=== PATIENT | female | born 1970 | race Caucasian/White ===

== ENCOUNTER 2017-11-02 22:07 | Emergency (ER) | payer BC ==
[~2017-11-02] VITALS: Ht 157.5 cm; Wt 140.7 kg
[~2017-11-02 22:07] MED LIST: NO HOME MEDS
[2017-11-02 23:10] LABS: BASOPHILS # (AUTO) 0.2 X10'3 (0-0.2); BASOPHILS % (AUTO) 1.3 % (0-1); EOSINOPHILS # (AUTO) 0.1 X10'3 (0-0.9); EOSINOPHILS % (AUTO) 0.6 % (0-6); HEMATOCRIT 41.5 % (35.0-45.0); HEMOGLOBIN 13.9 g/dl (12.0-16.0); LYMPHOCYTES # (AUTO) 2.1 X10'3 (1.1-4.8); LYMPHOCYTES % (AUTO) 14.1 % (21-51); MEAN CORPUSCULAR HEMOGLOBIN 29.5 PG (27.0-31.0); MEAN CORPUSCULAR HGB CONC 33.4 % (33.0-36.5); MEAN CORPUSCULAR VOLUME 88.3 FL (78-98); MEAN PLATELET VOLUME 8.6 FL (7.4-10.4); MONOCYTES # (AUTO) 0.6 X10'3 (0-0.9); NEUTROPHILS # (AUTO) 12.1 X10'3 (1.8-7.7); PLATELET COUNT 378 X10'3 (140-440); RED CELL DISTRIBUTION WIDTH 14.7 % (11.5-14.5); WHITE BLOOD COUNT 15.2 X10'3 (4.5-11.0)
[2017-11-02 23:20] LABS: ALANINE AMINOTRANSFERASE 28 U/L (12-78); ALBUMIN 3.6 G/DL (3.4-5.0); ALBUMIN/GLOBULIN RATIO 0.8 (1.1-1.5); ALKALINE PHOSPHATASE 117 IU/L (46-116); ANION GAP 9 (8-16); ASPARTATE AMINO TRANSFERASE 17 U/L (10-37); BILIRUBIN,TOTAL 0.4 MG/DL (0.1-1.0); BLOOD UREA NITROGEN 17 MG/DL (7-18); CALCIUM 9.3 MG/DL (8.5-10.1); CHLORIDE 100 MMOL/L (99-107); CREATININE 0.85 MG/DL (0.40-0.90); GLUCOSE 158 MG/DL (70-104); POTASSIUM 3.9 MMOL/L (3.5-5.1); SODIUM 136 MMOL/L (135-145); TOTAL PROTEIN 7.9 G/DL (6.4-8.2); eGFR 71 ML/MIN
[2017-11-02 23:27] LABS: D-DIMER 0.41 MG/L FEU (0-0.50); PARTIAL THROMBOPLASTIN TIME 29 SECONDS (22-32); PROTHROMBIN TIME 10.3 SECONDS (9.0-12.0)
[2017-11-03] MEDS ORDERED: LEVO750T21 PO (02:07)
[2017-11-03 02:20] VITALS: BP 158/94
== END 2017-11-03 02:21 | disposition home or self-care (01) ==
LOC: ER 22:08
DX: J06.9 Acute upper respiratory infection, unspecified (principal); M54.9 Dorsalgia, unspecified; I10 Essential (primary) hypertension; G89.29 Other chronic pain; F17.210 Nicotine dependence, cigarettes, uncomplicated; Z86.718 Personal history of other venous thrombosis and embolism; Z98.890 Other specified postprocedural states; Z88.1 Allergy status to other antibiotic agents; Z88.6 Allergy status to analgesic agent; Z88.0 Allergy status to penicillin; Z88.2 Allergy status to sulfonamides; Z88.5 Allergy status to narcotic agent; Z88.8 Allergy status to other drugs, medicaments and biological substances
CPT/HCPCS: 36415; 71045; 71250; 80053; 83880; 84484; 85025; 85379; 85610; 85730; 93005; 99285

== ENCOUNTER 2019-11-21 00:28 | Inpatient (IN) | payer BC ==
[~2019-11-21] VITALS: Ht 157.5 cm; Wt 136.4 kg
[2019-11-21] MEDS ORDERED: ipratropium/albuterol 3ml nebule NEB ONE (01:30)
[2019-11-21] MEDS ORDERED: methylPREDNISolone sod succ 125mg/2ml vial IV ONE (01:30)
[2019-11-21 01:40] LABS: BASOPHILS # (AUTO) 0.1 X10'3 (0-0.2); BASOPHILS % (AUTO) 0.9 % (0-1); EOSINOPHILS # (AUTO) 0.2 X10'3 (0-0.9); EOSINOPHILS % (AUTO) 1.6 % (0-6); HEMATOCRIT 42.2 % (35.0-45.0); HEMOGLOBIN 14.2 g/dl (12.0-16.0); LYMPHOCYTES % (AUTO) 15.2 % (21-51); MEAN CORPUSCULAR HEMOGLOBIN 30.9 PG (27.0-31.0); MEAN CORPUSCULAR HGB CONC 33.6 g/dL (33.0-36.5); MEAN PLATELET VOLUME 8.4 FL (7.4-10.4); MONOCYTES # (AUTO) 0.8 X10'3 (0-0.9); MONOCYTES % (AUTO) 6.1 % (2-12); NEUTROPHILS # (AUTO) 10.2 X10'3 (1.8-7.7); NEUTROPHILS % (AUTO) 76.2 % (42-75); PLATELET COUNT 325 X10'3 (140-440); RED BLOOD COUNT 4.59 X10'6 (4.20-5.60); RED CELL DISTRIBUTION WIDTH 13.3 % (11.5-14.5); WHITE BLOOD COUNT 13.4 X10'3 (4.5-11.0)
[2019-11-21 01:51] LABS: ALANINE AMINOTRANSFERASE 34 U/L (12-78); ALBUMIN 3.5 G/DL (3.4-5.0); ALBUMIN/GLOBULIN RATIO 0.8 (1.1-1.5); ALKALINE PHOSPHATASE 128 IU/L (46-116); ANION GAP 8 (8-16); ASPARTATE AMINO TRANSFERASE 21 U/L (10-37); BILIRUBIN,TOTAL 0.3 MG/DL (0.1-1.0); BLOOD UREA NITROGEN 20 MG/DL (7-18); CALCIUM 8.6 MG/DL (8.5-10.1); CHLORIDE 103 MMOL/L (99-107); CREATININE 1.11 MG/DL (0.40-0.90); GLUCOSE 187 MG/DL (70-104); POTASSIUM 4.4 MMOL/L (3.5-5.1); SODIUM 139 MMOL/L (135-145); TOTAL CARBON DIOXIDE 27.8 MMOL/L (24-32); eGFR 52 ML/MIN
[2019-11-21 01:58] LABS: TROPONIN I < 0.04 NG/ML (0.0-0.05)
--- NOTE | 2019-11-21 03:35 | NUR ---
pt in bed in no apparent distress. updated on tests being run. becoming agitated with delay in care, reassured tests are being run and wanting to ensure safe DC if stable enough to go home.
[2019-11-21] MEDS ORDERED: HYDR200T80 PO (04:06)
[2019-11-21] MEDS ORDERED: ALBU2.5V13 NEB (04:24)
[2019-11-21] MEDS ORDERED: HCTZ25T PO (04:24)
[2019-11-21] MEDS ORDERED: LEVO175T2 PO (04:24)
[2019-11-21] MEDS ORDERED: LIRA0.6P2 SUBCUT (04:24)
[2019-11-21] MEDS ORDERED: CHOL50004 PO (04:24)
[2019-11-21] MEDS ORDERED: LORA10TA65 PO (04:24)
[2019-11-21] MEDS ORDERED: FURO40TA4 PO (04:24)
[2019-11-21] MEDS ORDERED: HYDR-4353 PO (04:24)
[2019-11-21] MEDS ORDERED: APIX5TAB3 PO (04:24)
[2019-11-21] MEDS ORDERED: ALBU18HF2 INH (04:24)
[2019-11-21] MEDS ORDERED: BUPR300T53 PO (04:24)
[2019-11-21] MEDS ORDERED: LISI10TA4 PO (04:24)
[2019-11-21] MEDS ORDERED: ERGO500014 PO (04:24)
[2019-11-21] MEDS ORDERED: ATEN100T PO (04:24)
[2019-11-21] MEDS ORDERED: PANT20TA2 PO (04:24)
[2019-11-21] MEDS ORDERED: CYCL-394 PO (04:24)
[2019-11-21] MEDS ORDERED: FLUT100D2 INH (04:24)
[2019-11-21] MEDS ORDERED: potassium CL 10mEq/100ml bag 100 ML IV PRN ×2 (04:30)
[2019-11-21] MEDS ORDERED: ondansetron/PF 4mg/2ml inj IV PRN (04:30)
[2019-11-21] MEDS ORDERED: potassium Cl 20 mEq SR tablet PO PRN ×2 (04:30)
[2019-11-21] MEDS ORDERED: acetaminophen 325mg tablet PO PRN (04:30)
[2019-11-21] MEDS ORDERED: magnesium 2GM in 50ml NS 50 ML IV PRN (04:30)
[2019-11-21] MEDS ORDERED: magnesium Cl slow-release 64mg tablet PO PRN (04:30)
[2019-11-21] MEDS ORDERED: mag hydrox/Alum hydrox/simeth 30ml oral suspension PO PRN (04:30)
[2019-11-21] MEDS ORDERED: magnesium 4gm in 100ml NS 100 ML IV PRN (04:30)
[2019-11-21] MEDS ORDERED: magnesium hydroxide 30ml (MOM) UD suspension PO PRN (04:30)
--- NOTE | 2019-11-21 05:09 | NUR ---
Received report from primary care nurse Luis PALAFOX. Pending patient arrival to the floor.
[2019-11-21 05:30] VITALS: BP 149/81
[2019-11-21 06:08] LABS: HEMOGLOBIN A1C 7.1 % (4.5-6.2)
[2019-11-21] MEDS ORDERED: HYDROcodone/acetaminophen 10/325mg tab PO PRN (08:00)
[2019-11-21] MEDS: K and/or MAG REPLACEMENT MC SCH ×2 (08:00→18:58)
[2019-11-21] MEDS: albuterol 2.5 MG/3 ML nebule NEB PRN ×2 (08:28→20:27)
[2019-11-21] MEDS: lisinopril 10 MG tablet PO SCH (10:32)
[2019-11-21] MEDS: furosemide 40mg tablet PO SCH (10:32)
[2019-11-21] MEDS: atenolol 50mg tablet PO SCH (10:32)
[2019-11-21] MEDS: levoTHYROXINE 100mcg tablet PO SCH (10:33)
[2019-11-21] MEDS: pantoprazole 40mg Tablet.DR PO SCH (10:33)
[2019-11-21] MEDS: loratadine 10mg tablet PO SCH (10:34)
[2019-11-21] MEDS: apixaban 5mg tablet PO SCH (10:34)
[2019-11-21] MEDS: F IV SCH ×2 (10:35→20:19)
[2019-11-21] MEDS: normal saline 1000ml 1,000 ML IV SCH (10:53)
[2019-11-21 11:00] VITALS: BP 142/79
[2019-11-21] MEDS: hydroxychloroquine 200mg tablet PO SCH (11:09)
[2019-11-21] MEDS ORDERED: dextrose 50%-water 50ml dispensing syringe IV PRN ×2 (12:05)
[2019-11-21] MEDS ORDERED: MESSAGE TO PHARMACY PO ONE (12:05)
[2019-11-21] MEDS ORDERED: glucagon, human recombinant 1mg kit SUBCUT PRN (12:05)
[2019-11-21] MEDS ORDERED: dextrose ORAL solution 15 GM/59 ML bottle PO PRN ×2 (12:05)
[2019-11-21] MEDS: HYDROcodone/acetaminophen 10/325mg tab PO PRN ×2 (12:25→19:25)
--- NOTE | 2019-11-21 12:27 | NUR ---
Patient allergy lists corticosterioids. Patient states she was given dose in Er and also this am she was given dose and has tolerated well. Patient reports when "they put something in my wrist for carpal tunnel they just told me to stay away from corticosteriods." Dr Nieto and pharmacsist Bella notified. Ok to continue solumedrol.
[2019-11-21] MEDS: insulin Lispro (HumaLOG) vial - multi-dose SQ SCH ×2 (13:38→19:14)
--- NOTE | 2019-11-21 14:25 | NUR ---
DM consult: Pt with A1c 7.1%, written DM education with RD contact information placed in patient's chart. Will remain available.
--- NOTE | 2019-11-21 17:36 | NUR ---
Student documentation: I have reviewed and agree with all interventions, assessments performed and documented by VIVIENNE Miranda. Student Medication Administration: For this medication-pass time frame, all medication were reviewed, dispensed, administered and documented per hospital policy by VIVIENNE miranda.
[2019-11-21 18:00] VITALS: BP 135/65
--- NOTE | 2019-11-21 18:25 | NUR ---
Patient in room [facility]. I have received report from Ponce PALAFOX and had the opportunity to ask questions and assume patient care.
--- NOTE | 2019-11-21 18:27 | NUR ---
Problems reprioritized. Patient report given, questions answered & plan of care reviewed with Wanda PALAFOX.
--- NOTE | 2019-11-21 18:32 | NUR ---
Problems reprioritized. Patient report given, questions answered & plan of care reviewed with VIVIENNE Muñoz.
[2019-11-21] MEDS: oseltamivir phos 75mg capsule PO SCH (20:18)
[2019-11-21] MEDS: insulin glargine (Lantus) pen - multi-dose SQ SCH (23:04)
[2019-11-22] VITALS: BP 147/76
[2019-11-22] MEDS: albuterol 2.5 MG/3 ML nebule NEB PRN ×2 (02:21→17:47)
[2019-11-22 05:43] LABS: BASOPHILS # (AUTO) 0.1 X10'3 (0-0.2); BASOPHILS % (AUTO) 0.5 % (0-1); EOSINOPHILS % (AUTO) 0 % (0-6); HEMATOCRIT 42.3 % (35.0-45.0); HEMOGLOBIN 13.8 g/dl (12.0-16.0); LYMPHOCYTES # (AUTO) 1.6 X10'3 (1.1-4.8); LYMPHOCYTES % (AUTO) 11.1 % (21-51); MEAN CORPUSCULAR HEMOGLOBIN 29.8 PG (27.0-31.0); MEAN CORPUSCULAR HGB CONC 32.5 g/dL (33.0-36.5); MEAN CORPUSCULAR VOLUME 91.6 FL (78-98); MEAN PLATELET VOLUME 8.6 FL (7.4-10.4); MONOCYTES # (AUTO) 0.6 X10'3 (0-0.9); MONOCYTES % (AUTO) 3.8 % (2-12); NEUTROPHILS # (AUTO) 12.4 X10'3 (1.8-7.7); NEUTROPHILS % (AUTO) 84.6 % (42-75); PLATELET COUNT 346 X10'3 (140-440); RED BLOOD COUNT 4.62 X10'6 (4.20-5.60); RED CELL DISTRIBUTION WIDTH 13.4 % (11.5-14.5); WHITE BLOOD COUNT 14.7 X10'3 (4.5-11.0)
[2019-11-22 06:05] LABS: ALANINE AMINOTRANSFERASE 31 U/L (12-78); ALBUMIN 3.4 G/DL (3.4-5.0); ALBUMIN/GLOBULIN RATIO 0.8 (1.1-1.5); ALKALINE PHOSPHATASE 114 IU/L (46-116); ANION GAP 7 (8-16); ASPARTATE AMINO TRANSFERASE 14 U/L (10-37); BILIRUBIN,TOTAL 0.4 MG/DL (0.1-1.0); BLOOD UREA NITROGEN 15 MG/DL (7-18); BUN/CREATININE RATIO 22.7 (6.6-38.0); CALCIUM 9.2 MG/DL (8.5-10.1); CHLORIDE 102 MMOL/L (99-107); CREATININE 0.66 MG/DL (0.40-0.90); GLUCOSE 192 MG/DL (70-104); MAGNESIUM 2.1 MG/DL (1.5-2.4); POTASSIUM 4.2 MMOL/L (3.5-5.1); SODIUM 138 MMOL/L (135-145); TOTAL CARBON DIOXIDE 29.1 MMOL/L (24-32); TOTAL PROTEIN 7.9 G/DL (6.4-8.2); eGFR > 90 ML/MIN
--- NOTE | 2019-11-22 06:33 | NUR ---
Problems reprioritized. Patient report given, questions answered & plan of care reviewed with Nicole PALAFOX.
[2019-11-22 07:35] VITALS: BP 132/79
[2019-11-22] MEDS: F IV SCH ×2 (07:42→20:00)
[2019-11-22] MEDS: hydroxychloroquine 200mg tablet PO SCH (07:46)
[2019-11-22] MEDS: lisinopril 10 MG tablet PO SCH (07:46)
[2019-11-22] MEDS: pantoprazole 40mg Tablet.DR PO SCH (07:46)
[2019-11-22] MEDS: apixaban 5mg tablet PO SCH (07:46)
[2019-11-22] MEDS: furosemide 40mg tablet PO SCH ×2 (07:46→07:52)
[2019-11-22] MEDS: levoTHYROXINE 100mcg tablet PO SCH (07:47)
[2019-11-22] MEDS: atenolol 50mg tablet PO SCH (07:47)
[2019-11-22] MEDS: loratadine 10mg tablet PO SCH (07:47)
[2019-11-22] MEDS: HYDROcodone/acetaminophen 10/325mg tab PO PRN ×2 (07:54→22:40)
[2019-11-22] MEDS: K and/or MAG REPLACEMENT MC SCH ×2 (08:00→20:00)
[2019-11-22] MEDS: insulin Lispro (HumaLOG) vial - multi-dose SQ SCH ×3 (09:05→19:14)
[2019-11-22] MEDS: oseltamivir phos 75mg capsule PO SCH ×2 (09:05→19:15)
[2019-11-22] MEDS: levoFLOXACIN 500mg tablet PO SCH (11:26)
[2019-11-22 11:49] VITALS: BP 146/78
--- NOTE | 2019-11-22 14:15 | NUR ---
PAGER ID: [phone] MESSAGE: Dali Torres 355B: patient c/o red, hot face. thinks its a reaction to medication. new orders? [email or web address] [id number]
--- NOTE | 2019-11-22 14:55 | NUR ---
PAGER ID: [phone] MESSAGE: Dali ShipmanB: her face is still burning and itching. she thinks its a reaction to solumedrol.... can I give her some Benadryl or something? [email or web address] [id number]
[2019-11-22] MEDS ORDERED: diphenhydrAMINE 25mg capsule PO ONE (15:00)
--- NOTE | 2019-11-22 17:34 | NUR ---
Student documentation: I have reviewed all interventions, assessments performed and documented by Yosvany WELLS from [facility].
[2019-11-22 18:00] VITALS: BP 141/82
--- NOTE | 2019-11-22 18:40 | NUR ---
Problems reprioritized. Patient report given, questions answered & plan of care reviewed with VIVIENNE DE OLIVEIRA.
--- NOTE | 2019-11-22 18:40 | NUR ---
I have received report from Nicole PALAFOX and had the opportunity to ask questions and assume patient care.
[2019-11-22] MEDS: lactobacillus rhamnosus 10,000 MMU CELLS/CAPSULE PO SCH (19:16)
[2019-11-22] MEDS: insulin glargine (Lantus) pen - multi-dose SQ SCH (22:21)
[2019-11-22] MEDS: normal saline 1000ml 1,000 ML IV SCH (22:34)
[2019-11-22] MEDS: diphenhydrAMINE 25mg capsule PO PRN (22:37)
[2019-11-23] VITALS: BP 135/74
[2019-11-23 05:16] LABS: BASOPHILS % (AUTO) 0.3 % (0-1); EOSINOPHILS # (AUTO) 0.1 X10'3 (0-0.9); EOSINOPHILS % (AUTO) 0.5 % (0-6); HEMATOCRIT 41.8 % (35.0-45.0); HEMOGLOBIN 13.9 g/dl (12.0-16.0); LYMPHOCYTES # (AUTO) 3.6 X10'3 (1.1-4.8); LYMPHOCYTES % (AUTO) 28.9 % (21-51); MEAN CORPUSCULAR HEMOGLOBIN 30.5 PG (27.0-31.0); MEAN CORPUSCULAR HGB CONC 33.2 g/dL (33.0-36.5); MEAN CORPUSCULAR VOLUME 91.8 FL (78-98); MEAN PLATELET VOLUME 8.3 FL (7.4-10.4); MONOCYTES # (AUTO) 0.8 X10'3 (0-0.9); MONOCYTES % (AUTO) 6.7 % (2-12); NEUTROPHILS # (AUTO) 7.9 X10'3 (1.8-7.7); NEUTROPHILS % (AUTO) 63.6 % (42-75); PLATELET COUNT 330 X10'3 (140-440); RED BLOOD COUNT 4.55 X10'6 (4.20-5.60); RED CELL DISTRIBUTION WIDTH 13.4 % (11.5-14.5); WHITE BLOOD COUNT 12.4 X10'3 (4.5-11.0)
[2019-11-23 05:37] LABS: ALANINE AMINOTRANSFERASE 38 U/L (12-78); ALBUMIN 3.1 G/DL (3.4-5.0); ALBUMIN/GLOBULIN RATIO 0.8 (1.1-1.5); ALKALINE PHOSPHATASE 100 IU/L (46-116); ANION GAP 6 (8-16); ASPARTATE AMINO TRANSFERASE 25 U/L (10-37); BILIRUBIN,TOTAL 0.3 MG/DL (0.1-1.0); BLOOD UREA NITROGEN 26 MG/DL (7-18); CALCIUM 8.9 MG/DL (8.5-10.1); CHLORIDE 104 MMOL/L (99-107); CREATININE 0.93 MG/DL (0.40-0.90); GLUCOSE 149 MG/DL (70-104); POTASSIUM 4.2 MMOL/L (3.5-5.1); SODIUM 142 MMOL/L (135-145); TOTAL CARBON DIOXIDE 32.5 MMOL/L (24-32); TOTAL PROTEIN 7.2 G/DL (6.4-8.2); eGFR 64 ML/MIN
--- NOTE | 2019-11-23 06:05 | NUR ---
Problems reprioritized. Patient report given, questions answered & plan of care reviewed with Stuart PALAFOX.
--- NOTE | 2019-11-23 06:42 | NUR ---
Patient in room [facility]. I have received report from VIVIENNE MCCURDY and had the opportunity to ask questions and assume patient care.
--- NOTE | 2019-11-23 06:54 | NUR ---
Patient in room [facility]. I have received report from Gabrielle PALAFOX and had the opportunity to ask questions and assume patient care.
[2019-11-23] MEDS: levoTHYROXINE 100mcg tablet PO SCH (07:13)
[2019-11-23] MEDS: apixaban 5mg tablet PO SCH (07:13)
[2019-11-23] MEDS: loratadine 10mg tablet PO SCH (07:13)
[2019-11-23] MEDS: oseltamivir phos 75mg capsule PO SCH ×2 (07:15→19:59)
[2019-11-23] MEDS: lactobacillus rhamnosus 10,000 MMU CELLS/CAPSULE PO SCH ×2 (07:15→19:59)
[2019-11-23] MEDS: atenolol 50mg tablet PO SCH (07:15)
[2019-11-23] MEDS: lisinopril 10 MG tablet PO SCH (07:15)
[2019-11-23] MEDS: pantoprazole 40mg Tablet.DR PO SCH (07:17)
[2019-11-23] MEDS: HYDROcodone/acetaminophen 10/325mg tab PO PRN ×2 (07:17→17:12)
[2019-11-23] MEDS: diphenhydrAMINE 25mg capsule PO PRN (07:17)
[2019-11-23] MEDS: furosemide 40mg tablet PO SCH (08:00)
[2019-11-23] MEDS: K and/or MAG REPLACEMENT MC SCH ×2 (08:00→20:00)
[2019-11-23 08:15] VITALS: BP 158/78
[2019-11-23] MEDS: hydroxychloroquine 200mg tablet PO SCH (09:11)
[2019-11-23] MEDS: insulin Lispro (HumaLOG) vial - multi-dose SQ SCH ×3 (09:26→19:24)
[2019-11-23] MEDS: levoFLOXACIN 500mg tablet PO SCH (10:53)
[2019-11-23 12:25] VITALS: BP 151/80
--- NOTE | 2019-11-23 12:34 | NUR ---
Per patient Dr. Nieto and she had discussed resuming Solumedrol with Benadryl. Clarified with Dr Nieto and Dr Nieto did ok to resume patient's Solumedrol with Benadryl.
[2019-11-23] MEDS ORDERED: F IV ONE (12:45)
[2019-11-23] MEDS: diphenhydrAMINE 25mg capsule PO SCH ×2 (13:02→19:59)
--- NOTE | 2019-11-23 15:09 | NUR ---
Student documentation: I have reviewed and agree with all interventions, assessments performed and documented by SN Criselda. Student Medication Administration: For this medication-pass time frame, all medication were reviewed, dispensed, administered and documented per hospital policy by Sn Criselda.
--- NOTE | 2019-11-23 15:36 | NUR ---
Problems reprioritized. Patient report given, questions answered & plan of care reviewed with VIVIENNE Carrion.
--- NOTE | 2019-11-23 15:37 | NUR ---
Patient in room [facility]. I have received report from VIVIENNE Cooley and [facility] student nurse Criselda, and had the opportunity to ask questions and assume patient care.
--- NOTE | 2019-11-23 18:25 | NUR ---
Problems reprioritized. Patient report given, questions answered & plan of care reviewed with Joanne Paige RN.
[2019-11-23 18:30] VITALS: BP 135/70
--- NOTE | 2019-11-23 18:33 | NUR ---
Patient in room [facility]. I have received report from VIVIENNE Carrion and had the opportunity to ask questions and assume patient care. Addendum: 11/23/19 at 1833 by Brittney Davis RN Amended: Links added.
[2019-11-23] MEDS: F IV SCH (19:59)
[2019-11-23] MEDS: insulin glargine (Lantus) pen - multi-dose SQ SCH (21:29)
[2019-11-24] VITALS: BP 143/81
[2019-11-24 05:17] LABS: BASOPHILS # (AUTO) 0.1 X10'3 (0-0.2); EOSINOPHILS % (AUTO) 0 % (0-6); HEMATOCRIT 42.4 % (35.0-45.0); HEMOGLOBIN 14.1 g/dl (12.0-16.0); LYMPHOCYTES # (AUTO) 1.8 X10'3 (1.1-4.8); LYMPHOCYTES % (AUTO) 12.9 % (21-51); MEAN CORPUSCULAR HEMOGLOBIN 30.4 PG (27.0-31.0); MEAN CORPUSCULAR HGB CONC 33.1 g/dL (33.0-36.5); MEAN CORPUSCULAR VOLUME 91.7 FL (78-98); MONOCYTES # (AUTO) 0.6 X10'3 (0-0.9); MONOCYTES % (AUTO) 4.3 % (2-12); NEUTROPHILS # (AUTO) 11.7 X10'3 (1.8-7.7); NEUTROPHILS % (AUTO) 81.8 % (42-75); PLATELET COUNT 348 X10'3 (140-440); RED BLOOD COUNT 4.62 X10'6 (4.20-5.60); RED CELL DISTRIBUTION WIDTH 13.4 % (11.5-14.5); WHITE BLOOD COUNT 14.3 X10'3 (4.5-11.0)
[2019-11-24 05:26] LABS: ALANINE AMINOTRANSFERASE 76 U/L (12-78); ALBUMIN 3.2 G/DL (3.4-5.0); ALBUMIN/GLOBULIN RATIO 0.7 (1.1-1.5); ALKALINE PHOSPHATASE 113 IU/L (46-116); ANION GAP 7 (8-16); ASPARTATE AMINO TRANSFERASE 40 U/L (10-37); BILIRUBIN,TOTAL 0.3 MG/DL (0.1-1.0); BLOOD UREA NITROGEN 24 MG/DL (7-18); CALCIUM 8.6 MG/DL (8.5-10.1); CHLORIDE 104 MMOL/L (99-107); CREATININE 0.89 MG/DL (0.40-0.90); GLUCOSE 246 MG/DL (70-104); MAGNESIUM 1.9 MG/DL (1.5-2.4); POTASSIUM 4.2 MMOL/L (3.5-5.1); SODIUM 140 MMOL/L (135-145); TOTAL CARBON DIOXIDE 28.7 MMOL/L (24-32); TOTAL PROTEIN 7.5 G/DL (6.4-8.2); eGFR 67 ML/MIN
--- NOTE | 2019-11-24 06:00 | NUR ---
Patient in room [facility]. I have received report from Joanne PALAFOX and had the opportunity to ask questions and assume patient care.
--- NOTE | 2019-11-24 06:32 | NUR ---
Problems reprioritized. Patient report given, questions answered & plan of care reviewed with VIVIENNE Oleary.
[2019-11-24 08:00] VITALS: BP 140/83
[2019-11-24] MEDS: K and/or MAG REPLACEMENT MC SCH (08:00)
[2019-11-24] MEDS: furosemide 40mg tablet PO SCH (08:00)
[2019-11-24] MEDS: oseltamivir phos 75mg capsule PO SCH (08:13)
[2019-11-24] MEDS: lactobacillus rhamnosus 10,000 MMU CELLS/CAPSULE PO SCH (08:14)
[2019-11-24] MEDS: diphenhydrAMINE 25mg capsule PO SCH (08:14)
[2019-11-24] MEDS: apixaban 5mg tablet PO SCH (08:15)
[2019-11-24] MEDS: pantoprazole 40mg Tablet.DR PO SCH (08:15)
[2019-11-24] MEDS: atenolol 50mg tablet PO SCH (08:15)
[2019-11-24] MEDS: hydroxychloroquine 200mg tablet PO SCH (08:15)
[2019-11-24] MEDS: loratadine 10mg tablet PO SCH (08:15)
[2019-11-24] MEDS: lisinopril 10 MG tablet PO SCH (08:16)
[2019-11-24] MEDS: HYDROcodone/acetaminophen 10/325mg tab PO PRN (08:17)
[2019-11-24] MEDS: F IV SCH (08:17)
[2019-11-24] MEDS: levoTHYROXINE 100mcg tablet PO SCH (08:19)
[2019-11-24] MEDS: insulin Lispro (HumaLOG) vial - multi-dose SQ SCH (08:36)
[2019-11-24 11:55] VITALS: BP 150/90
[2019-11-24] MEDS: levoFLOXACIN 500mg tablet PO SCH (12:01)
[2019-11-24] MEDS ORDERED: LEVO500T89 PO (12:09)
[2019-11-24] MEDS ORDERED: IPRA3AMP9 IH (12:09)
[2019-11-24] MEDS ORDERED: TAM75C PO (12:09)
--- NOTE | 2019-11-24 13:53 | NUR ---
Patient discharged with all belongings. Patient discharge paperwork gone over with pt. Patient had the opportunity to ask questions. Home meds given back to patient. W/C to front lobby. Family to take pt home.
== END 2019-11-24 13:53 | disposition home or self-care (01) | DRG 191 ==
LOC: ER 00:29 → ED HOLD 04:26 → SUR 3N 05:15
PROVIDERS: ADMIT Internal Medicine; ATTEND Internal Medicine
DX: J44.1 Chronic obstructive pulmonary disease with (acute) exacerbation (principal); Z68.43 Body mass index [BMI] 50.0-59.9, adult; J10.1 Influenza due to other identified influenza virus with other respiratory manifestations; M32.9 Systemic lupus erythematosus, unspecified; R09.02 Hypoxemia; E03.9 Hypothyroidism, unspecified; F17.200 Nicotine dependence, unspecified, uncomplicated; G89.29 Other chronic pain; I10 Essential (primary) hypertension; M17.0 Bilateral primary osteoarthritis of knee; Z20.828 Contact with and (suspected) exposure to other viral communicable diseases; Z79.01 Long term (current) use of anticoagulants; Z86.718 Personal history of other venous thrombosis and embolism; Z98.891 History of uterine scar from previous surgery; E66.01 Morbid (severe) obesity due to excess calories
CPT/HCPCS: 36415; 71045; 76937; 80053; 82948; 83036; 83735; 83880; 84443; 84484; 85025; 87081; 87502; 87503; 87635; 93005; 93306; 93308; 94640; 94667; 94760; 96374; 99285; G0378; J1815; J2920; J2930; J7030; Q0163

== ENCOUNTER 2021-03-21 20:34 | Emergency (ER) | payer BC ==
[~2021-03-21] VITALS: Ht 154.9 cm; Wt 132.4 kg
[~2021-03-21 20:34] MED LIST changes: +ALBU18HF2 INH; +APIX5TAB3 PO; +ATEN100T PO; +BUPR300T53 PO; +CHOL50004 PO; +CYCL-394 PO; +FLUT100D2 INH; +FURO40TA4 PO; +HYDR-4353 PO; +HYDR200T80 PO; +IPRA3AMP9 IH; +LEVO175T2 PO; +LEVO500T90 PO; +LIRA0.6P2 SUBCUT; +LISI10TA27 PO; +LORA10TA65 PO; +PANT20TA2 PO; +TAM75C PO; +[UNRECOGNIZED DRUG - CODE] PO
[2021-03-21 22:13] VITALS: BP 166/100
[2021-03-21] MEDS ORDERED: ipratropium/albuterol 3ml nebule NEB ONE (22:45)
[2021-03-22 00:02] LABS: BASOPHILS % (AUTO) 0.3 % (0-1); EOSINOPHILS # (AUTO) 0.2 X10'3 (0-0.9); EOSINOPHILS % (AUTO) 1.7 % (0-6); HEMATOCRIT 40.7 % (35.0-45.0); HEMOGLOBIN 13.8 g/dl (12.0-16.0); LYMPHOCYTES # (AUTO) 3.5 X10'3 (1.1-4.8); LYMPHOCYTES % (AUTO) 35.8 % (21-51); MEAN CORPUSCULAR HEMOGLOBIN 31.1 PG (27.0-31.0); MEAN CORPUSCULAR HGB CONC 33.8 g/dL (33.0-36.5); MEAN PLATELET VOLUME 8.3 FL (7.4-10.4); MONOCYTES # (AUTO) 0.6 X10'3 (0-0.9); MONOCYTES % (AUTO) 6.4 % (2-12); NEUTROPHILS # (AUTO) 5.4 X10'3 (1.8-7.7); NEUTROPHILS % (AUTO) 55.8 % (42-75); PLATELET COUNT 303 X10'3 (140-440); RED BLOOD COUNT 4.43 X10'6 (4.20-5.60); RED CELL DISTRIBUTION WIDTH 13.5 % (11.5-14.5); WHITE BLOOD COUNT 9.7 X10'3 (4.5-11.0)
[2021-03-22 00:15] LABS: ALANINE AMINOTRANSFERASE 22 U/L (12-78); ALBUMIN 3.2 G/DL (3.4-5.0); ALBUMIN/GLOBULIN RATIO 0.8 (1.1-1.5); ALKALINE PHOSPHATASE 99 IU/L (46-116); ANION GAP 9 (8-16); ASPARTATE AMINO TRANSFERASE 12 U/L (10-37); BILIRUBIN,TOTAL 0.2 MG/DL (0.1-1.0); BLOOD UREA NITROGEN 20 MG/DL (7-18); BUN/CREATININE RATIO 25.3 (6.6-38.0); CALCIUM 8.4 MG/DL (8.5-10.1); CHLORIDE 105 MMOL/L (99-107); CREATININE 0.79 MG/DL (0.40-0.90); GLUCOSE 155 MG/DL (70-104); POTASSIUM 4.3 MMOL/L (3.5-5.1); SODIUM 140 MMOL/L (135-145); TOTAL CARBON DIOXIDE 26.4 MMOL/L (24-32); TOTAL PROTEIN 7.4 G/DL (6.4-8.2); eGFR 76 ML/MIN
== END 2021-03-22 03:40 | disposition left against medical advice (07) ==
LOC: ER 20:36
DX: J06.9 Acute upper respiratory infection, unspecified (principal); I10 Essential (primary) hypertension; J44.9 Chronic obstructive pulmonary disease, unspecified; E11.9 Type 2 diabetes mellitus without complications; Z88.0 Allergy status to penicillin; Z88.2 Allergy status to sulfonamides; Z79.899 Other long term (current) drug therapy; Z88.6 Allergy status to analgesic agent; Z88.1 Allergy status to other antibiotic agents
CPT/HCPCS: 36415; 71045; 80053; 83880; 84484; 85025; 93005; 99285

== ENCOUNTER 2021-11-07 13:24 | Emergency (ER) | payer BC ==
[~2021-11-07] VITALS: Ht 154.9 cm; Wt 134.0 kg
[~2021-11-07 13:24] MED LIST changes: +ERGO125013 PO; +LEVO-65 PO; -LEVO500T90 PO; -[UNRECOGNIZED DRUG - CODE] PO
[2021-11-07 14:04] VITALS: BP 177/105
[2021-11-07] MEDS ORDERED: NEO/5DRO7 RIGHT EAR (14:23)
[2021-11-07] MEDS ORDERED: CIPR-259 PO (14:23)
== END 2021-11-07 16:05 | disposition home or self-care (01) ==
LOC: ER 13:24
DX: H60.91 Unspecified otitis externa, right ear (principal); I10 Essential (primary) hypertension; J44.9 Chronic obstructive pulmonary disease, unspecified; E11.9 Type 2 diabetes mellitus without complications; G89.29 Other chronic pain; Z88.6 Allergy status to analgesic agent
CPT/HCPCS: 99283

== ENCOUNTER 2022-10-30 16:51 | Emergency (ER) | payer BC ==
[~2022-10-30] VITALS: Ht 154.9 cm; Wt 139.0 kg
[~2022-10-30 16:51] MED LIST changes: +NEO/5DRO7 RIGHT EAR
[2022-10-30 17:51] VITALS: TEMP 97.3
[2022-10-30 19:20] VITALS: BP 183/102; PULSE 78; RESP 18; O2SAT 95
[2022-10-30] MEDS ORDERED: proparacaine 0.5% ophthalmic drops 15ml EACHEYE ONE (19:40)
== END 2022-10-30 20:17 | disposition home or self-care (01) ==
LOC: ER 16:52
DX: H11.32 Conjunctival hemorrhage, left eye (principal); I11.0 Hypertensive heart disease with heart failure; J44.9 Chronic obstructive pulmonary disease, unspecified; E11.9 Type 2 diabetes mellitus without complications; Z98.890 Other specified postprocedural states; Z88.6 Allergy status to analgesic agent; Z88.2 Allergy status to sulfonamides; Z88.1 Allergy status to other antibiotic agents
CPT/HCPCS: 99281

== ENCOUNTER 2023-02-14 20:19 | Emergency (ER) | payer BC ==
[~2023-02-14] VITALS: Ht 154.9 cm; Wt 136.4 kg
[2023-02-14 22:13] LABS: BASOPHILS # (AUTO) 0.1 X10'3 (0-0.2); BASOPHILS % (AUTO) 0.7 % (0-1); EOSINOPHILS # (AUTO) 0.1 X10'3 (0-0.9); EOSINOPHILS % (AUTO) 1.2 % (0-6); HEMATOCRIT 41.1 % (35.0-45.0); LYMPHOCYTES # (AUTO) 2.6 X10'3 (1.1-4.8); LYMPHOCYTES % (AUTO) 23.1 % (21-51); MEAN CORPUSCULAR HEMOGLOBIN 30.7 PG (27.0-31.0); MEAN CORPUSCULAR HGB CONC 34.1 g/dL (33.0-36.5); MEAN CORPUSCULAR VOLUME 90.2 FL (78-98); MEAN PLATELET VOLUME 7.9 FL (7.4-10.4); MONOCYTES # (AUTO) 0.7 X10'3 (0-0.9); NEUTROPHILS # (AUTO) 7.7 X10'3 (1.8-7.7); PLATELET COUNT 317 X10'3 (140-440); RED BLOOD COUNT 4.56 X10'6 (4.20-5.60); RED CELL DISTRIBUTION WIDTH 13.3 % (11.5-14.5); WHITE BLOOD COUNT 11.2 X10'3 (4.5-11.0)
[2023-02-14 22:27] LABS: ALANINE AMINOTRANSFERASE 35 U/L (12-78); ALBUMIN 3.1 G/DL (3.4-5.0); ALBUMIN/GLOBULIN RATIO 0.7 (1.1-1.5); ALKALINE PHOSPHATASE 108 IU/L (46-116); ANION GAP 5 (8-16); ASPARTATE AMINO TRANSFERASE 24 U/L (10-37); BILIRUBIN,TOTAL 0.4 MG/DL (0.1-1.0); BLOOD UREA NITROGEN 9 MG/DL (7-18); BUN/CREATININE RATIO 13.4 (10.0-20.0); CHLORIDE 100 MMOL/L (99-107); CREATININE 0.67 MG/DL (0.40-0.90); GLUCOSE 142 MG/DL (70-104); POTASSIUM 4.1 MMOL/L (3.5-5.1); SODIUM 137 MMOL/L (135-145); TOTAL CARBON DIOXIDE 32.1 MMOL/L (24-32); TOTAL PROTEIN 7.5 G/DL (6.4-8.2); eCRCL 72 ML/MIN; eGFR > 90 ML/MIN
[2023-02-14 22:35] LABS: PRO BRAIN NATRIURETIC PEPTIDE 239 PG/ML (0-125)
[2023-02-15] MEDS ORDERED: ipratropium/albuterol 3ml nebule NEB ONE (00:15)
[2023-02-15 00:31] VITALS: PULSE 73; RESP 20; O2SAT 94
[2023-02-15 00:39] VITALS: PULSE 78; RESP 18; O2SAT 98
[2023-02-15] MEDS ORDERED: ATR0.5NEB IH (00:51)
[2023-02-15] MEDS ORDERED: ALB0.5UD NEB (00:51)
[2023-02-15 01:22] VITALS: BP 101/47; PULSE 77; RESP 18; TEMP 98; O2SAT 98
== END 2023-02-15 01:24 | disposition home or self-care (01) ==
LOC: ER 20:20
DX: J06.9 Acute upper respiratory infection, unspecified (principal); Z20.822 Contact with and (suspected) exposure to COVID-19; J44.89 Other specified chronic obstructive pulmonary disease; I10 Essential (primary) hypertension; E11.9 Type 2 diabetes mellitus without complications; G89.29 Other chronic pain; Z79.899 Other long term (current) drug therapy; Z79.2 Long term (current) use of antibiotics; Z88.0 Allergy status to penicillin; Z88.1 Allergy status to other antibiotic agents; Z88.2 Allergy status to sulfonamides; Z88.8 Allergy status to other drugs, medicaments and biological substances; Z88.6 Allergy status to analgesic agent
CPT/HCPCS: 36415; 71045; 80053; 83880; 84484; 85025; 87502; 87503; 87811; 93005; 94640; 94760; 99285

== ENCOUNTER 2023-08-27 15:05 | Emergency (ER) | payer BC ==
[~2023-08-27] VITALS: Ht 157.5 cm; Wt 133.2 kg
[~2023-08-27 15:05] MED LIST changes: +ATR0.5NEB IH
[2023-08-27] MEDS: LIDOcaine 1%/PF 5ML 10 MG/ML VIAL SQ ONE (16:38)
[2023-08-27] MEDS: oxyCODONE/APAP 10/325mg tablet PO ONE (16:39)
[2023-08-27] MEDS ORDERED: CEPH-585 PO (17:31)
[2023-08-27 17:44] VITALS: BP 133/74; PULSE 76; RESP 17; TEMP 98.5; O2SAT 92
== END 2023-08-27 17:45 | disposition home or self-care (01) ==
LOC: ER 15:05
DX: K08.89 Other specified disorders of teeth and supporting structures (principal); I10 Essential (primary) hypertension; J44.9 Chronic obstructive pulmonary disease, unspecified; E11.9 Type 2 diabetes mellitus without complications; Z88.8 Allergy status to other drugs, medicaments and biological substances; Z88.6 Allergy status to analgesic agent; Z88.0 Allergy status to penicillin; Z88.2 Allergy status to sulfonamides; Z88.1 Allergy status to other antibiotic agents; Z98.890 Other specified postprocedural states
CPT/HCPCS: 64400; 99284

== ENCOUNTER 2024-06-25 15:53 | Inpatient (IN) | payer BC ==
[~2024-06-25] VITALS: Ht 154.9 cm; Wt 133.8 kg
[~2024-06-25 15:53] MED LIST changes: +CEPH-585 PO
[2024-06-25 16:28] LABS: BASOPHILS % (AUTO) 0.3 % (0-1); EOSINOPHILS # (AUTO) 0.1 X10'3 (0-0.9); EOSINOPHILS % (AUTO) 0.8 % (0-6); HEMATOCRIT 41.8 % (35.0-45.0); HEMOGLOBIN 14.2 g/dl (12.0-16.0); LYMPHOCYTES # (AUTO) 0.9 X10'3 (1.1-4.8); LYMPHOCYTES % (AUTO) 6.9 % (21-51); MEAN CORPUSCULAR HEMOGLOBIN 31.6 PG (27.0-31.0); MEAN CORPUSCULAR HGB CONC 33.9 g/dL (33.0-36.5); MEAN PLATELET VOLUME 7.9 FL (7.4-10.4); MONOCYTES # (AUTO) 0.7 X10'3 (0-0.9); MONOCYTES % (AUTO) 5.1 % (2-12); NEUTROPHILS # (AUTO) 11.2 X10'3 (1.8-7.7); NEUTROPHILS % (AUTO) 86.9 % (42-75); PLATELET COUNT 374 X10'3 (140-440); RED BLOOD COUNT 4.49 X10'6 (4.20-5.60); RED CELL DISTRIBUTION WIDTH 14.8 % (11.5-14.5); WHITE BLOOD COUNT 12.9 X10'3 (4.5-11.0)
[2024-06-25 16:39] LABS: ALANINE AMINOTRANSFERASE 28 U/L (12-78); ALBUMIN 3.5 G/DL (3.4-5.0); ALBUMIN/GLOBULIN RATIO 0.9 (1.1-1.5); ALKALINE PHOSPHATASE 106 IU/L (46-116); ANION GAP 6 (8-16); ASPARTATE AMINO TRANSFERASE 28 U/L (10-37); BILIRUBIN,TOTAL 0.5 MG/DL (0.1-1.0); BLOOD UREA NITROGEN 11 MG/DL (7-18); BUN/CREATININE RATIO 12.9 (10.0-20.0); CALCIUM 8.7 MG/DL (8.5-10.1); CHLORIDE 99 MMOL/L (99-107); CREATININE 0.85 MG/DL (0.40-0.90); GLUCOSE 183 MG/DL (70-104); SODIUM 138 MMOL/L (135-145); TOTAL CARBON DIOXIDE 32.7 MMOL/L (24-32); TOTAL PROTEIN 7.4 G/DL (6.4-8.2); eCRCL 56 ML/MIN; eGFR 69 ML/MIN
[2024-06-25 16:46] LABS: PRO BRAIN NATRIURETIC PEPTIDE 200 PG/ML (0-125)
--- NOTE | 2024-06-25 16:54 | RADIOLOGY REPORT ---
CHEST RADIOGRAPH Indication: CP Technique: Single frontal view of the chest was obtained Comparison: DI CHEST,SINGLE VIEW on DOS: 02/14/23, CHEST,SINGLE VIEW on DOS: 03/21/21, CHEST,SINGLE VIEW on DOS: 11/21/19 FINDINGS: Lines and Tubes: None Lungs: No focal consolidation. Pleura: No effusion. No pneumothorax. Cardiomediastinal contours: Unremarkable Bones: No acute osseous abnormality. There are multiple surgical clips in the neck base in the midline. IMPRESSION: 1. No acute cardiopulmonary disease.
--- NOTE | 2024-06-25 16:54 | ELECTROCARDIOGRAPH REPORT ---
[facility] Test Date: 2024-06-25 Test Time: 16:52:45 Pat Name: ALENA BENTLEY Department: EMERGENCY ROOM Room: [place] [address] Gender: F Back End Developer: YARELI : [id number] Requested By: REE STEVENS Order Number: [id number] Reading MD: Dr. Tank Moser Measurements Intervals [place] Rate: 85 P: 63 CO: 148 QRS: 53 QRSD: 99 T: 65 QT: 378 QTc: 450 Interpretive Statements Sinus rhythm Electronically Signed On 06-27-2024 21:44:[address] Tank Moser Please click the below link to view image of tracing.
--- NOTE | 2024-06-25 20:17 | Physician Documentation ---
History of Present Illness ~ Chief Complaint: Shortness of Breath Stated Complaint: LOW 02 Time Seen by MD: 19:47 Primary Medical Doctor: CHANTAL DEL ROSARIO Mode of Arrival: POV, Ambulatory HPI Patient presents to the emergency room for evaluation of shortness of breath. Patient has history of COPD. She was recently treated with an antibiotic and states that she got better however she has suddenly gotten worse. Endorses congestion as well as coryza. No fevers. She normally has to use oxygen as needed but has had to use it constantly since this started. She does smoke but she stopped two days ago. Medication Reconciliation Allergies: Coded Allergies: nitrofurantoin (Unverified Allergy, Intermediate, Hives, 06/25/24) NSAIDS (Non-Steroidal Anti-Inflamma (Verified Allergy, Unknown, 06/25/24) Penicillins (Verified Allergy, Unknown, 06/25/24) RASH, TONGUE SWELLING Sulfa (Sulfonamide Antibiotics) (Verified Allergy, Unknown, 06/25/24) Tetracyclines (Verified Allergy, Unknown, 06/25/24) aspirin (Verified Allergy, Unknown, 06/25/24) codeine (Verified Allergy, Unknown, 06/25/24) erythromycin base (Verified Allergy, Unknown, 06/25/24) lemon (Unverified Allergy, Unknown, 06/25/24) meperidine (Verified Allergy, Unknown, 06/25/24) morphine (Verified Allergy, Unknown, 06/25/24) prednisone (Verified Allergy, Unknown, 06/25/24) Uncoded Allergies: CORTICOSTEROIDS (Allergy, Unknown, RASH, 11/21/19) IVP DYE (Allergy, Unknown, 11/21/19) METRONIDIZOL (Allergy, Unknown, 11/21/19) Scheduled Albuterol Sulfate (Ventolin Hfa), 2 PUFFS INH Q4HPRN, (Reported) Apixaban (Eliquis), 1 TAB PO DAILY, (Reported) Atenolol (Atenolol), 1 TAB PO DAILY, (Reported) Bupropion HCl (Wellbutrin Xl), 1 TAB PO DAILY, (Reported) Cholecalciferol (Vitamin D3) (Vitamin D3), 4,000 UNIT PO DAILY, (Reported) Cyclobenzaprine HCl (Cyclobenzaprine HCl), 1 TAB PO BID, (Reported) Ergocalciferol (Vitamin D2) (Vitamin D2), 4 CAP PO Q7D, (Reported) Fluticasone Propionate (Flovent 100 Mcg Diskus), 220 MCG INH BID, (Reported) Folic Acid* (Folic Acid*), 1 TAB PO DAILY, (Reported) Furosemide 40 MG (Lasix), 1 TAB PO DAILY, (Reported) Hydrocodone Bit/Acetaminophen ([place] 10-325 Tablet), 1-2 TAB PO Q6H PRN PAIN, (Reported) Hydroxychloroquine Sulfate (Plaquenil), 1 TAB PO DAILY, (Reported) Ipratropium [place] Neb* (Atrovent Neb*), 0.5 MG IH Q8H Ipratropium/Albuterol Sulfate (IPRAT-ALBUT 0.5-3(2.5) MG/3 ML nebule), 3 ML IH QID Levothyroxine* (Synthroid*), 200 MCG PO DAILY, (Reported) Loratadine (Claritin), 1 TAB PO DAILY, (Reported) Metformin Hcl (Metformin Hcl), 1 TAB PO Q12H, (Reported) Pantoprazole Sodium (Protonix), 2 TAB PO DAILY, (Reported) Semaglutide (Ozempic), 2 MG SUBCUT Q7D, (Reported) Miscellaneous Medications Methotrexate Sodium/Pf (Methotrexate 1 gm Vial), (Reported) Discontinued Medications Cephalexin*Monohydrate* (Keflex*), 1 CAP PO QID Discontinued Reason: patient no longer taking Home Med List (No Home Medications), (Reported) Discontinued Reason: patient no longer taking Levofloxacin (Levofloxacin), 500 MG PO DAILY@11 Discontinued Reason: patient no longer taking Liraglutide (Victoza 3-Kain), Unknown Dose SUBCUT DAILY, (Reported) Discontinued Reason: patient no longer taking Lisinopril (Lisinopril), 1 TAB PO DAILY, (Reported) Discontinued Reason: patient no longer taking Constantino/Polymyx B Sulf/Dexameth (Vdjelz-Ltgqk-Yaqbatdz Eye Drop), 1 DROP RIGHT EAR Q6H Discontinued Reason: patient no longer taking Oseltamivir Phosphate (Tamiflu), 75 MG PO BID Discontinued Reason: patient no longer taking Past Medical History Past Medical History: *ENT*, Hypertension, Asthma, COPD, Pneumonia, Diabetes, Thyroid (unspecified), Chronic Pain, Deep Vein Thrombosis Past Surgical History: , other Alcohol Use: None Drug Use: none Lives with: Family Lives In: Home Review of Systems ROS All review of systems negative except as per HPI Physical Exam Vital Signs: Temperature: 97.6, Source: Temporal, Heart Rate: 87, Respiratory Rate: 28, BP: 153/84, Pulse Oximetry: 95, Weight: 133.800 Oxygen Flow Rate: 2 Physical Exam General: Patient is awake, alert, oriented x4 in no acute distress. On nasal cannula Head: Normocephalic and atraumatic. Eyes: Conjunctival normal. EOMI. PERRL. ENT: Mucous membranes moist. Neck: Supple, trachea is midline. Chest: Noted rhonchi bilaterally. There is no accessory muscle use or retractions. Cardiac: RRR without murmurs, gallops, or rubs. Progress Results/Orders Results/Orders Orders - GEO CARTAGENA MD Page Hospitalist (06/25/24 20:39) Fill Out Med Reconciliation (06/25/24 20:39) Svn Treatment (06/25/24 20:39) Completed Orders - GEO CARTAGENA MD Diphenhydramine Inj (Benadryl Inj.) (06/25/24 20:40) Azithromycin/Ns 500mg/250ml (Zithromax/N (06/25/24 20:40) Ceftriaxone/W9a-Pghjcmbd 1gm (Rocephin 1 (06/25/24 20:40) Ipratropium/Albuterol Nebule (Ipratrop/A (06/25/24 20:40) Vital Signs 06/25/24 06/25/24 06/25/24 06/25/24 16:01 17:00 17:30 18:03 Temp 97.6 97.6 Pulse 82 83 Resp 18 24 16 B/P (MAP) 136/79 147/94 (111) Pulse Ox 92 97 94 O2 Delivery Nasal Cannula* O2 Flow Rate 2 2 FiO2 28 28 06/25/24 19:15 Temp 97.6 Pulse 87 Resp 28 B/P (MAP) 153/84 (107) Pulse Ox 95 O2 Flow Rate 2 FiO2 28 Laboratory Tests Test 06/25/24 16:18 06/25/24 17:17 06/25/24 18:20 06/25/24 19:05 White Blood Count 12.9 H Red Blood Count 4.49 Hemoglobin 14.2 Hematocrit 41.8 Mean Corpuscular Volume 93.0 Mean Corpuscular Hemoglobin 31.6 H Mean Corpuscular Hemoglobin Concent 33.9 Red Cell Distribution Width 14.8 H Platelet Count 374 Mean Platelet Volume 7.9 Neutrophils (%) (Auto) 86.9 H Lymphocytes (%) (Auto) 6.9 L Monocytes (%) (Auto) 5.1 Eosinophils (%) (Auto) 0.8 Basophils (%) (Auto) 0.3 Neutrophils # (Auto) 11.2 H Lymphocytes # (Auto) 0.9 L Monocytes # (Auto) 0.7 Eosinophils # (Auto) 0.1 Basophils # (Auto) 0.0 CBC Comment Sodium Level 138 Potassium Level 4.0 Chloride Level 99 Carbon Dioxide Level 32.7 H Anion Gap 6 L Blood Urea Nitrogen 11 Creatinine 0.85 Estimated GFR/1.73 m2 69 BUN/Creatinine Ratio 12.9 Glucose Level 183 H Hemoglobin A1c 7.8 H Calcium Level 8.7 Total Bilirubin 0.5 Aspartate Amino Transf (AST/SGOT) 28 Alanine Aminotransferase (ALT/SGPT) 28 Alkaline Phosphatase 106 Troponin I High Sensitivity 6 6 7 Pro-B-Type Natriuretic Peptide 200 H Total Protein 7.4 Albumin 3.5 Globulin 3.9 Albumin/Globulin Ratio 0.9 L Chemistry Comments Urine Specimen Description Cln catch midstream Urine Color Yellow Urine Clarity Clear Urine pH 6.5 Urine Specific [place] 1.010 Urine Protein Negative Urine Glucose (UA) Negative Urine Ketones Negative Urine Occult Blood Negative Urine Nitrite Negative Urine Bilirubin Negative Urine Urobilinogen 1.0 Urine Leukocyte Esterase Negative Urine Culture Indicated Not ind Volume Urine Centrifuged 10 ml Urine Comment Troponin I High Sens Percent Delta 0 16 Troponin I Hi Sens Absolute Change 0 1 Medical Decision Making Findings Patient presented to the emergency room with chief complaint of shortness of breath differentials include but are not limited to CHF exacerbation, pneumonia, COPD, viral syndrome therefore emergent labs and imaging indicated. Patient has already been on antibiotics and continues to worsen and she is considered high risk and he had not feel she would do well on outpatient basis. Departure Disposition: HOME / SELF CARE Impression: Primary Impression: Respiratory failure Additional Impression: Pneumonia Condition: Guarded Referrals: NO PRIMARY CARE PROVIDER (PCP) Signature Scribe Signature: No scribe Attestation: The note accurately reflects work and decisions made by me.Geo Cartagena MD 06/26/24 05:32 GEO CARTAGENA MD June 25, 2024 20:17
[2024-06-25] MEDS ORDERED: magnesium sulf-water 2g/50mL 50 ML IV PRN (21:10)
[2024-06-25] MEDS ORDERED: potassium Cl 20 mEq SR tablet PO PRN ×2 (21:10)
[2024-06-25] MEDS ORDERED: magnesium sulf-water 4G/100mL 100 ML IV PRN (21:10)
[2024-06-25] MEDS ORDERED: magnesium hydroxide 30ml (MOM) UD suspension PO PRN (21:10)
[2024-06-25] MEDS ORDERED: magnesium Cl slow-release 64mg tablet PO PRN (21:10)
[2024-06-25] MEDS ORDERED: ondansetron/PF 4mg/2ml inj IV PRN (21:10)
[2024-06-25] MEDS ORDERED: potassium Cl 40MEQ/1/2NS 520ml 520 ML IV PRN (21:10)
[2024-06-25] MEDS ORDERED: ipratropium/albuterol 3ml nebule NEB PRN (21:10)
[2024-06-25] MEDS ORDERED: acetaminophen 325mg tablet PO PRN (21:10)
[2024-06-25] MEDS ORDERED: mag hydrox/Alum hydrox/simeth 30ml oral suspension PO PRN (21:10)
[2024-06-25 21:30] LABS: BILIRUBIN,URINE NEGATIVE (Neg); CLARITY,URINE CLEAR (Clear); COLOR,URINE YELLOW (Yellow); GLUCOSE, URINE NEGATIVE (Neg); KETONES,URINE NEGATIVE (Neg); LEUKOCYTE ESTERASE ,URINE NEGATIVE (Neg); NITRITES, URINE NEGATIVE (Neg); OCCULT BLOOD,URINE NEGATIVE (Neg); PH,URINE 6.5 (4.8-8.0); PROTEIN,URINE NEGATIVE (Neg)
[2024-06-25] MEDS: diphenhydrAMINE 50 mg/ml inj IV ONE ×2 (21:30→23:37)
[2024-06-25] MEDS: CefTRIAXone/D5W-Rocephin 1gm 50 ML IV ONE (21:30)
[2024-06-25] MEDS: azithromycin/NS 500mg/250ml 250 ML IV ONE (21:30)
[2024-06-25 21:34] LABS: UA COLLECTION TYPE CLN CATCH MIDSTREAM
[2024-06-25 21:40] LABS: HEMOGLOBIN A1C 7.8 % (4.5-6.2)
[2024-06-25] MEDS: ipratropium/albuterol 3ml nebule NEB ONE (21:41)
[2024-06-25 21:42] VITALS: PULSE 84; RESP 18; O2SAT 96
--- NOTE | 2024-06-25 21:48 | HISTORY AND PHYSICAL-Residence ---
History & Physical Providers to CC Resident Creating Document: PETRA CHAMPION, RES ~ History of Present Illness Primary Medical Doctor: [facility] Reason for Admit\Complaint: COPD exacerbation, pneumonia History of Present Illness The patient is a 54-year-old female with past medical history of COPD, hypothyroidism, diabetes mellitus, hypertension, CHF, rheumatoid arthritis, lupus, presented to the ED with complaints of worsening cough, shortness of breaths and increased oxygen requirements since last two days. The patient has been having difficulty breathing, congestion since the past three weeks but they have worsened yesterday. The cough is productive with greenish yellow sputum and she reports having epigastric abdominal pain and muscle aches because of the cough. Also vomited because of the cough. She also reported subjective fevers of 101 F yesterday. She has congestion and her nose is stuffed up. No sneezing. She usually uses 1 to 1-1/2 L of oxygen at home but has been requiring 2-2 and half L since the last couple of days. Also reported that she can not lie flat on the bed. Uses multiple pillows and sleeps on her side. The patient reported that she had eye discharge towards ending of May for which she was admitted her PCP. She was also having breathing problems at that time. She used cefdinir pills and antibiotic eyedrops for seven days. She felt a little better after the antibiotic course but did not completely resolve. Patient denies diarrhea, constipation, burning micturition. Reports occasional palpitations 1-2 times per week. Allergies: Coded Allergies: nitrofurantoin (Unverified Allergy, Intermediate, Hives, 06/25/24) NSAIDS (Non-Steroidal Anti-Inflamma (Verified Allergy, Unknown, 06/25/24) Penicillins (Verified Allergy, Unknown, 06/25/24) RASH, TONGUE SWELLING Sulfa (Sulfonamide Antibiotics) (Verified Allergy, Unknown, 06/25/24) Tetracyclines (Verified Allergy, Unknown, 06/25/24) aspirin (Verified Allergy, Unknown, 06/25/24) codeine (Verified Allergy, Unknown, 06/25/24) erythromycin base (Verified Allergy, Unknown, 06/25/24) lemon (Unverified Allergy, Unknown, 06/25/24) meperidine (Verified Allergy, Unknown, 06/25/24) morphine (Verified Allergy, Unknown, 06/25/24) prednisone (Verified Allergy, Unknown, 06/25/24) Uncoded Allergies: CORTICOSTEROIDS (Allergy, Unknown, RASH, 11/21/19) IVP DYE (Allergy, Unknown, 11/21/19) METRONIDIZOL (Allergy, Unknown, 11/21/19) Home Medications Home Medications Active Keflex* (Cephalexin HCl) 500 Mg Capsule 1 Cap PO QID Atrovent Neb* (Ipratropium [place]) 0.2 Mg/Ml (0.02 %) Solution 0.5 Mg IH Q8H 10 Days Upsedz-Gpolk-Fjghmqle Eye Drop (Constantino/Polymyx B Sulf/Dexameth) 5 Ml Drops.susp 1 Drop RIGHT EAR Q6H 5 Days IPRAT-ALBUT 0.5-3(2.5) MG/3 ML nebule (Ipratropium/Albuterol Sulfate) 3 Ml Ampul.neb 3 Ml IH QID 10 Days Tamiflu (Oseltamivir Phosphate) 75 Mg Capsule 75 Mg PO BID 3 Days Levofloxacin 500 Mg Tablet 500 Mg PO DAILY@11 5 Days Reported Lasix (Furosemide) 40 Mg Tablet 1 Tab PO DAILY Protonix (Pantoprazole Sodium) 20 Mg Tablet.dr 2 Tab PO DAILY 30 Days Eliquis (Apixaban) 5 Mg Tablet 1 Tab PO DAILY 30 Days Victoza 3-Kain (Liraglutide) 0.6 Mg/0.1 Ml Pen.injctr Unknown Dose SUBCUT DAILY Claritin (Loratadine) 10 Mg Tablet 1 Tab PO DAILY 30 Days Ventolin Hfa (Albuterol Sulfate) 18 Gm Hfa.aer.ad 2 Puffs INH Q4HPRN Flovent 100 Mcg Diskus (Fluticasone Propionate) 1 Puff Disk.w.dev 220 Mcg INH BID Cyclobenzaprine HCl 10 Mg Tablet 1 Tab PO BID 10 Days [place] 10-325 Tablet (Acetaminophen/Hydrocodone Bitart) 1 Each Tablet 1-2 Tab PO Q6H PRN PAIN TAKE 1 TO 2 TABLETS EVERY 6 HOURS NEEDED FOR PAIN. Synthroid* (Levothyroxine Sodium) 175 Mcg Tab 200 Mcg PO DAILY 30 Days Wellbutrin Xl (Bupropion HCl) 300 Mg Tab.er.24h 1 Tab PO DAILY 30 Days Atenolol 100 Mg Tablet 1 Tab PO DAILY 30 Days Lisinopril 10 Mg Tablet 1 Tab PO DAILY 30 Days Vitamin D3 (Cholecalciferol (Vitamin D3)) 125 Mcg Capsule 4,000 Unit PO DAILY 30 Days Vitamin D2 (Ergocalciferol (Vitamin D2)) 1,250 Mcg Capsule 4 Cap PO Q7D 28 Days Plaquenil (Hydroxychloroquine Sulfate) 200 Mg Tablet 1 Tab PO DAILY 30 Days No Home Medications (Home Med List) Each Past Medical History Past Medical History COPD Hypertension DM Lupus RA Thyroiditis s/p thyroidectomy CHF Chronic pain History of DVT in 1987 Past Surgical History Surgical History Comment Thyroidectomy Multiple knee surgeries Past Social History Social History Comment Patient lives in her house with family. Ambulates independently without assistance. The patient goes to [facility] for primary care. 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 Chronic smoker, smoking since age 10. Smokes about half pack of cigarettes per day. Denies alcohol and recreational drug abuse. Alcohol Use: None Drug Use: None Lives with: Family Lives In: Home ROS ROS Reviewed in full. Negative except for pertinent positives in HPI. Exam Vitals: Vital Signs Date Time Temp Pulse Resp B/P (MAP) Pulse Ox O2 Delivery O2 Flow Rate FiO2 06/25/24 19:15 97.6 87 28 153/84 (107) 95 2 28 06/25/24 17:30 Nasal Cannula* General: Adult female, alert and oriented x4, appears to be in mild distress because of shortness of breath Head: Normocephalic with an atraumatic Eyes: Pupils- 3mm, reacting to light, conjunctiva- anicteric Nose and throat: No polyps, septum- normal, no mucosal ulcers Neck: Supple, no lymphadenopathy, no carotid bruit Respiratory: Bilateral rhonchi, diminished breath sounds in the right lung em Cardiac: S1-S2 heard, rhythm regular, no gallop/murmur Abdomen: non distended, mild epigastric tenderness present, no organomegaly, bowel sounds - heard Extremities: no clubbing, no pedal edema, no deformities, peripheral pulses - 2+ Skin: warm and dry, no rash, no purpura Neuro: No focal deficit, gross cranial nerve exam - normal Diagnostic Data Last Recorded Lab Results: 06/25/24 1618 06/25/24 1618 Diagnostic Data: Laboratory Tests Test 06/25/24 21:28 Coagulation Comments Advance Care Planning Advanced Care plannin - 30 Minutes (Advanced care planning discussed with the patient and she does not want chest compressions but is okay with short-term intubation) Additional Plan A 54-year-old female with past medical history of COPD presented to the ED with complaints of worsening shortness of breath since last three weeks. She is being admitted into the hospital for further evaluation and management. Plan: Acute on chronic hypoxemic respiratory failure Acute COPD exacerbation Community-acquired pneumonia Patient uses 1 to 1-1/2 L O2 at home. Requiring 3 L now. Started her on ipratropium/albuterol q.4h scheduled and q.2h p.r.n. Patient allergic to multiple antibiotics and steroids. Starting the patient on IV levofloxacin. One dose of 125 mg Solu-Medrol along with 25 mg Benadryl ordered. Continue 40 mg Solu-Medrol twice daily along with 25 mg Benadryl twice daily. Incentive spirometry and flutter valve q.1h while awake. Follow up with blood cultures and sputum culture reports. Mild leukocytosis 12.9 with neutrophilia, normal lactic acid and procalcitonin, afebrile. COVID negative. Diabetes mellitus HB A1c 7.8. Starting the patient on hyperglycemia/hypoglycemia protocol. Started the patient on 25 units b.i.d. Lantus and 10 units Humalog with meals along with medium dose supplemental insulin protocol. Hypertension Continue home atenolol 100 mg daily. Hypothyroidism Continue home Synthroid 200 mcg daily. History of DVT The patient takes eliquis 5 mg once daily. Continued. Chronic bilateral leg swelling Continue home Lasix 40 mg daily. Rheumatoid arthritis Lupus Continue outpatient management. Code Status: No chest compressions, okay for short-term intubation DVT Prophylaxis: Eliquis Analgesia/Sedation: [place] 10 Lines/Tubes: PIV GI Prophylaxis: Protonix Nutrition: Heart healthy diet PT: Ordered Disposition: We will admit the patient into [facility]. Continue treatment for COPD and pneumonia. Administer Benadryl along with Solu-Medrol. Petra Champion MD Internal Medicine Resident PGY-1 Addendum I personally reviewed the chart, labs and imaging and reviewed the patient with the team. I agree with the assessment and plan as documented by the resident. Patient was seen through remote audio-visual assessment through HIPAA compliance setup. Date of Service: June 25, 2024 Billing Provider: GEO ABDALLA MD, SOWMYA MANJARI, RES June 25, 2024 21:48 GEO ABDALLA MD June 26, 2024 01:05
[2024-06-25 21:49] LABS: PROTHROMBIN TIME 10.6 SECONDS (9.0-12.0)
[2024-06-25 21:50] VITALS: PULSE 89
[2024-06-25] MEDS ORDERED: SEMA2PEN SUBCUT (22:05)
[2024-06-25] MEDS ORDERED: METH1VIA2 (22:05)
[2024-06-25] MEDS ORDERED: METF-436 PO (22:06)
[2024-06-25] MEDS ORDERED: FOLI0.4T6 PO (22:06)
[2024-06-25] MEDS ORDERED: apixaban 5mg tablet PO SCH (22:10)
[2024-06-25] MEDS ORDERED: DEXTROSE 15 GM of carb/4 tabs (each vial/BOTTLE has 4 tablets) PO PRN ×2 (22:25)
[2024-06-25] MEDS ORDERED: dextrose 50%-water 50ml dispensing syringe IV PRN ×2 (22:25)
[2024-06-25] MEDS ORDERED: glucagon, human recombinant 1mg kit SUBCUT PRN (22:25)
[2024-06-25 22:44] VITALS: BP 140/62; PULSE 85; RESP 12; TEMP 97.9; O2SAT 92
[2024-06-25 22:50] VITALS: RESP 12; O2SAT 92
[2024-06-25] MEDS: methylPREDNISolone sod succ 125mg/2ml vial IV ONE (23:36)
[2024-06-25] MEDS: insulin glargine (Lantus) pen - multi-dose SQ ONE (23:40)
[2024-06-25] MEDS: ipratropium/albuterol 3ml nebule NEB SCH (23:45)
[2024-06-25 23:47] VITALS: PULSE 87; RESP 20; O2SAT 93
[2024-06-25] MEDS: insulin glargine (Lantus) pen - multi-dose SQ SCH (23:51)
[2024-06-25 23:55] VITALS: PULSE 87; RESP 18
[2024-06-26] VITALS (18 sets, daily range): BP systolic 108–149; BP diastolic 60–86; PULSE 6–88; RESP 15–20; TEMP 96.9–97.9; O2SAT 87–96
[2024-06-26] MEDS: HYDROcodone/acetaminophen 10/325mg tab PO ONE (02:19)
[2024-06-26 06:18] LABS: BASOPHILS % (AUTO) 0.1 % (0-1); EOSINOPHILS % (AUTO) 0.1 % (0-6); HEMATOCRIT 42.2 % (35.0-45.0); LYMPHOCYTES # (AUTO) 0.7 X10'3 (1.1-4.8); LYMPHOCYTES % (AUTO) 5.7 % (21-51); MEAN CORPUSCULAR HEMOGLOBIN 31.1 PG (27.0-31.0); MEAN CORPUSCULAR HGB CONC 33.2 g/dL (33.0-36.5); MEAN CORPUSCULAR VOLUME 93.8 FL (78-98); MEAN PLATELET VOLUME 8.5 FL (7.4-10.4); MONOCYTES # (AUTO) 0.2 X10'3 (0-0.9); MONOCYTES % (AUTO) 1.6 % (2-12); NEUTROPHILS # (AUTO) 11.1 X10'3 (1.8-7.7); NEUTROPHILS % (AUTO) 92.5 % (42-75); PLATELET COUNT 348 X10'3 (140-440)
[2024-06-26 06:26] LABS: ALANINE AMINOTRANSFERASE 25 U/L (12-78); ALBUMIN 3.4 G/DL (3.4-5.0); ALBUMIN/GLOBULIN RATIO 0.8 (1.1-1.5); ALKALINE PHOSPHATASE 104 IU/L (46-116); ANION GAP 5 (8-16); ASPARTATE AMINO TRANSFERASE 19 U/L (10-37); BILIRUBIN,TOTAL 0.4 MG/DL (0.1-1.0); BLOOD UREA NITROGEN 9 MG/DL (7-18); BUN/CREATININE RATIO 10.6 (10.0-20.0); CALCIUM 8.7 MG/DL (8.5-10.1); CHLORIDE 100 MMOL/L (99-107); CHOLESTEROL 213 MG/DL (0-200); CREATININE 0.85 MG/DL (0.40-0.90); GLUCOSE 221 MG/DL (70-104); HDL CHOLESTEROL 43 MG/DL (35-60); LDL CHOLESTEROL 145 MG/DL (50-100); MAGNESIUM 1.8 MG/DL (1.5-2.4); POTASSIUM 4.2 MMOL/L (3.5-5.1); SODIUM 139 MMOL/L (135-145); TOTAL PROTEIN 7.7 G/DL (6.4-8.2); TRIGLYCERIDES 100 MG/DL (20-135); eCRCL 56 ML/MIN; eGFR 69 ML/MIN
[2024-06-26] MEDS: budesonide 0.5mg/2ml UD nebule IH SCH (07:24)
[2024-06-26] MEDS: nicotine 21mg patch - 24 hr TD SCH (08:00)
[2024-06-26] MEDS: K and/or MAG REPLACEMENT MC SCH (08:00)
[2024-06-26] MEDS: docusate sod 100mg capsule PO SCH (08:00)
[2024-06-26] MEDS ORDERED: HYDR200T73 PO (08:17)
[2024-06-26] MEDS: levoFLOXACIN-Levaquin 500mg/D5 100 ML IV SCH (08:26)
[2024-06-26] MEDS: methylPREDNISolone sod succ 125mg/2ml vial IV SCH (08:26)
[2024-06-26] MEDS: diphenhydrAMINE 50 mg/ml inj IV SCH (08:27)
[2024-06-26] MEDS: HYDROcodone/acetaminophen 10/325mg tab PO SCH (08:31)
[2024-06-26] MEDS: folic acid 0.4mg tablet PO SCH (08:31)
[2024-06-26] MEDS: apixaban 5mg tablet PO SCH ×2 (08:31→20:05)
[2024-06-26] MEDS: BUPROPION HCL 150MG XL 24 HR 150 MG TAB PO SCH (08:31)
[2024-06-26] MEDS: levoTHYROXINE 100mcg tablet PO SCH (08:32)
[2024-06-26] MEDS: furosemide 40mg tablet PO SCH (08:32)
[2024-06-26] MEDS: loratadine 10mg tablet PO SCH (08:33)
[2024-06-26] MEDS: pantoprazole 40mg Tablet.DR PO SCH (08:33)
[2024-06-26] MEDS: atenolol 50mg tablet PO SCH (08:33)
[2024-06-26] MEDS: INSULIN LISPRO 100 UNIT/ML INSULN.PEN MULTI-DOSE SQ SCH ×3 (08:36→18:00)
[2024-06-26] MEDS ORDERED: METF-1203 PO (08:47)
[2024-06-26] MEDS ORDERED: albuterol 2.5 MG/3 ML nebule NEB PRN (10:35)
[2024-06-26] MEDS: ipratropium/albuterol 3ml nebule NEB SCH (11:28)
[2024-06-26] MEDS ORDERED: HYDROcodone/acetaminophen 10/325mg tab PO PRN (13:20)
--- NOTE | 2024-06-26 13:41 | PROGRESS NOTE- Residence ---
Progress Note - Resident Providers to CC Resident Creating Document: NADIA HOLLINGSWORTH RES ~ Central Line/PICC still needed: No Hernandez-Non Protocol Hernandez Indications Met/Not Met: F/C Indications Not Met Antibiotic Timeout Antibiotic Ordered?: Yes Subjective Patient still continued to have coarse raspy cough. Short of breath and difficulty completing sentences and full. Tried to contact her welder in [place], Dr. Lake, awaiting further repsonse back. Objective Vital Signs Date Time Temp Pulse Resp B/P (MAP) Pulse Ox O2 Delivery O2 Flow Rate FiO2 06/26/24 11:36 74 18 Nasal Cannula 3.0 06/26/24 11:28 90 32 06/26/24 10:57 96.9 120/67 (84) Result Diagram: 06/26/2452006/26/24 05 General: Awake and Alert, short of breath. Diffuse tenderness present across the joints and beyond Resp: Mildly tachypneic. Diffuse coarse breath sounds on both inspiration and expiration and raspy cough+ Heart: Regular Rate and rhythm, normal S1 and S2 without murmur, rub or gallop. Abdomen: Obese, Soft and non tender no organomegaly Extremities: Synovitis, joint tenderness present. No cyanosis,clubbing or edema. Skin: Warm and Dry. Malar rash+ Coagulation Studies Laboratory Tests Test 06/25/24 21:28 Prothrombin Time 10.6 SECONDS (9.0-12.0) INR International Normalized Ratio 1.0 INR Coagulation Comments Counseling Services Smoking & Tobacco Cessation: 3-10 Minutes Assessment Assessment 54-year-old female patient with a past medical history of COPD requiring 2 L of oxygen throughout the day, hypothyroidism, diabetes mellitus, hypertension, RA and lupus presents to the hospital with complaints of worsening raspy cough, shortness of breath and increasing fatigue. Pain in the chest and the epigastric region with a deep breath as well as with coughing. She is unable to walk half the distance of what she used to be able to over the last 3 weeks since she fell sick. Reports worsening of the malar rash on her face. Denies any frothy urine or hematuria. Reports that this has happened to her before, and her welder testing that she is in a lupus flare but she is unable to take steroids q.2h allergies. She is unable to use any of the higher immunosuppressants including Rituxan or cyclophosphamide or mycophenolate mofetil and has never used them before either. It appears as the patient was recently sick three weeks ago due to a URTI and since then has been having these ongoing symptoms. Ozempic started 4 months ago, Liraglutide to four years ago but these symptoms started since January. Plan Plan 1. Acute on chronic hypoxemic respiratory failure: Differentials include: progressive ILD/community-acquired pneumonia induced/COPD exacerbation Wells score: 4.5 [place]. [place] [address]. ProBNP very mildly elevated at 200, nonsignificant Requiring 3-4 L oxygen nasal cannula On duo nebs q.4 scheduled and albuterol q.2h p.r.n.. RT eval and treat. Incentive spirometry and flutter valve. 40 mg Solu-Medrol b.i.d.; Benadryl held due to increased drowsiness. If patient develops an allergic reaction, kindly administer Benadryl immediately Awaiting echocardiogram. Follow CTA chest CRP mildly elevated at 5, ESR normal at 16 Continue tapering off of the oxygen to maintain saturation greater than 90% 2. 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 dosing Contacted her welder- reports that the patient has no systemic lupus and has only discoid lupus and to continue her methotrexate. She has never required steroids before. Also her ESR CRP are within normal limits, due to this, the patient will be managed for her acute COPD exacerbation. 3. Morbid obesity Sleep apnea Needs outpatient evaluation by sleep study On Ozempic outside at 0.25, recommend increasing 0.75 4. Type 2 diabetes mellitus: HGB A1c 7.8 Lantus 25 units, Humalog 5 units and medium was supplemental insulin protocol 5. Rheumatoid arthritis: Systemic lupus erythematosus Fibromyalgia Continue methotrexate and Plaquenil Pain management with Dulzura 10 q.6 p.r.n. as per her home medication, prescribed by pain management clinic and [facility] pharmacy for Cures report 6. Hypothyroidism: Continue home medication of Synthroid 200 mcg 7. Hypertension: Home medication of atenolol 100 mg 8. Nicotine use disorder: Declined the nicotine patch 9. Prior history of DVT: Noncompliance Multiple DVTs in the past, lifelong anticoagulation with Eliquis 5 mg b.i.d. Noncompliance with Eliquis- takes only 5 mg daily Follow CTA chest for PE Lines: PIV Code status: Limited Diet: Carb controlled GI prophylaxis: Protonix DVT prophylaxis: Fausto Hollingsworth PGY2, Internal medicine resident Date of Service: June 26, 2024 Billing Provider: LEXI KELLY MD Common Visit Codes: [id number] INP/OBS CARE(HIGH) NADIA HOLLINGSWORTH, RES June 26, 2024 13:41 LEXI KELLY MD June 26, 2024 17:07
[2024-06-26] MEDS: HYDROcodone/acetaminophen 5mg/325mg tablet PO ONE (13:42)
[2024-06-26] MEDS ORDERED: APIX5TAB3 PO (14:28)
[2024-06-26] MEDS ORDERED: iohexol 350MG/ML 100ml bottle IV ONE (17:23)
[2024-06-26] MEDS ORDERED: diphenhydrAMINE 50 mg/ml inj IM ONE (17:25)
[2024-06-26] MEDS: diphenhydrAMINE 50 mg/ml inj IV ONE ×2 (17:39→20:32)
--- NOTE | 2024-06-26 18:29 | RADIOLOGY REPORT ---
PROCEDURE: CT CTA CHEST PE W/ IV CONTRAST 06/26/2024 05:52 PM INDICATION: SOB, ACUTE ONSET, PREMEDICATED W. BENEDRYL COMPARISON: None TECHNIQUE: Coverage: Thorax IV contrast: Administered Phases: Arterial Multiplanar 3-D Maximum Intensity Projection images (MIP) reconstructions were created by the technol jhonatan in the coronal and sagittal planes as part of the CT angiography protocol. Adverse events: None Medication laboratory values were reviewed to verify the patient meets criteria for contrast administ ration. All CT scans at this medical facility are performed using dose modulation techniques as appropriate t o a performed exam including the following: Automated exposure control was utilized; adjustment of th e MA and/or KV according to patient size; and use of iterative reconstruction technique. Radiation dose: CTDIvol 48 mGy, DLP 9099.3 mGy*cm. FINDINGS: Cardiovascular: No evidence of acute or chronic pulmonary emboli identified. Aorta is normal in calib er. The heart is normal in size. Lungs: No lobar consolidation. Mild right basilar subsegmental atelectasis due to elevated right campbell diaphragm. Atherosclerotic calcification of the aortic arch noted. No pleural effusion. No pneumothor ax. The airways are patent. Thyroid: Surgically absent. Esophagus: Unremarkable. Lymphatics: No hilar or mediastinal lymphadenopathy. Bones/soft tissues: No acute abnormality. Upper abdomen: No acute abnormality. Bilateral adrenal gland hyperplasia, left greater than right. H epatomegaly and hepatic steatosis. Gallbladder surgically absent. Mild splenomegaly. Other: None. IMPRESSION: 1. No evidence of acute pulmonary emboli, aortic aneurysm or dissection.
[2024-06-26] MEDS ORDERED: azithromycin/NS 500mg/250ml 250 ML IV SCH (21:00)
[2024-06-27] VITALS (8 sets, daily range): BP systolic 139–152; BP diastolic 82–89; PULSE 80–90; RESP 15–20; TEMP 97–97.2; O2SAT 92–99
[2024-06-27] MEDS: HYDROcodone/acetaminophen 10/325mg tab PO PRN (05:59)
[2024-06-27 06:58] LABS: BASOPHILS % (AUTO) 0.2 % (0-1); EOSINOPHILS % (AUTO) 0 % (0-6); HEMATOCRIT 42.2 % (35.0-45.0); HEMOGLOBIN 13.8 g/dl (12.0-16.0); LYMPHOCYTES # (AUTO) 1.2 X10'3 (1.1-4.8); LYMPHOCYTES % (AUTO) 12.2 % (21-51); MEAN CORPUSCULAR HEMOGLOBIN 31.1 PG (27.0-31.0); MEAN CORPUSCULAR HGB CONC 32.7 g/dL (33.0-36.5); MEAN CORPUSCULAR VOLUME 95.1 FL (78-98); MEAN PLATELET VOLUME 8.5 FL (7.4-10.4); MONOCYTES # (AUTO) 0.6 X10'3 (0-0.9); MONOCYTES % (AUTO) 6.1 % (2-12); NEUTROPHILS % (AUTO) 81.5 % (42-75); PLATELET COUNT 348 X10'3 (140-440); RED BLOOD COUNT 4.43 X10'6 (4.20-5.60); RED CELL DISTRIBUTION WIDTH 15.4 % (11.5-14.5); WHITE BLOOD COUNT 9.9 X10'3 (4.5-11.0)
[2024-06-27 07:33] LABS: ALANINE AMINOTRANSFERASE 22 U/L (12-78); ALBUMIN 3.1 G/DL (3.4-5.0); ALBUMIN/GLOBULIN RATIO 0.7 (1.1-1.5); ALKALINE PHOSPHATASE 93 IU/L (46-116); ANION GAP 9 (8-16); ASPARTATE AMINO TRANSFERASE 25 U/L (10-37); BILIRUBIN,TOTAL 0.2 MG/DL (0.1-1.0); BLOOD UREA NITROGEN 16 MG/DL (7-18); BUN/CREATININE RATIO 17.6 (10.0-20.0); CALCIUM 8.8 MG/DL (8.5-10.1); CHLORIDE 101 MMOL/L (99-107); CREATININE 0.91 MG/DL (0.40-0.90); GLUCOSE 241 MG/DL (70-104); POTASSIUM 4.5 MMOL/L (3.5-5.1); SODIUM 139 MMOL/L (135-145); TOTAL CARBON DIOXIDE 29.2 MMOL/L (24-32); TOTAL PROTEIN 7.3 G/DL (6.4-8.2); eCRCL 52 ML/MIN; eGFR 64 ML/MIN
[2024-06-27] MEDS: diphenhydrAMINE 50 mg/ml inj IV SCH (09:56)
[2024-06-27] MEDS ORDERED: guaiFENesin ER 600mg tablet PO ONE (10:30)
[2024-06-27] MEDS ORDERED: LEVO750T68 PO (10:41)
[2024-06-27] MEDS ORDERED: nystatin 500,000 unit/5ML UD oral suspension PO SCH (13:00)
--- NOTE | 2024-06-27 17:58 | DISCHARGE SUMMARY-Residence ---
Discharge Summary Providers to CC Resident Creating Document: NADIA KEY RES ~ Discharge Summary Admission Diagnosis: PNEUMONIA Hospital Course DATE OF ADMISSION: 06/25/24 DATE OF DISCHARGE: 06/27/24 Discharge Diagnosis\Comment: Acute exacerbation of COPD, acute on chronic hypoxemic respiratory failure secondary to the above Acute CHF exacerbation ruled out Morbid obesity, sleep apnea Discoid lupus, RA, fibromyalgia. Systemic lupus erythematosus ruled out Type 2 DM Nicotine use disorder Prior history of DVT- noncompliant with medications Operations\Procedures: None Consultants: None Complications: None Condition on DC: Stable for transfer New Medications: Levofloxacin (Levofloxacin) 750 Mg Tablet 750 MG PO DAILY for 5 Days, #5 TAB Continued Medications: Albuterol Sulfate (Ventolin Hfa) 18 Gm Hfa.aer.ad 2 PUFFS INH Q4HPRN, #1 INHALER Apixaban (Eliquis) 5 Mg Tablet 1 TAB PO BID for 30 Days, #60 TAB Atenolol (Atenolol) 100 Mg Tablet 1 TAB PO DAILY for 30 Days, #30 TAB Bupropion HCl (Wellbutrin Xl) 300 Mg Tab.er.24h 1 TAB PO DAILY for 30 Days, #30 TAB Cholecalciferol (Vitamin D3) (Vitamin D3) 125 Mcg Capsule 4000 UNIT PO DAILY for 30 Days, #30 CAP 0 Refills Cyclobenzaprine HCl (Cyclobenzaprine HCl) 10 Mg Tablet 1 TAB PO BID for muscle spasms for 10 Days, #30 TAB Fluticasone Propionate (Flovent 100 Mcg Diskus) 1 Puff Disk.w.dev 220 MCG INH BID, #1 INHALER Folic Acid* (Folic Acid*) 0.4 Mg Tablet 1 TAB PO DAILY for 30 Days, #30 TAB Furosemide 40 MG (Lasix) 40 Mg Tablet 1 TAB PO DAILY, TAB Hydrocodone Bit/Acetaminophen ([place] 10-325 Tablet) 1 Each Tablet 1-2 TAB PO Q6H PRN PAIN, #20 TAB TAKE 1 TO 2 TABLETS EVERY 6 HOURS NEEDED FOR PAIN. Hydroxychloroquine Sulfate* (Plaquenil*) 200 Mg Tablet 3 TAB PO DAILY Ipratropium [place] Neb* (Atrovent Neb*) 0.2 Mg/Ml (0.02 %) Solution 0.5 MG IH Q8H for 10 Days, #30 ML Ipratropium/Albuterol Sulfate (IPRAT-ALBUT 0.5-3(2.5) MG/3 ML nebule) 3 Ml Ampul.neb 3 ML IH QID for 10 Days, #40 ML Levothyroxine* (Synthroid*) 175 Mcg Tab 200 MCG PO DAILY for 30 Days, #30 TAB Loratadine (Claritin) 10 Mg Tablet 1 TAB PO DAILY for allergy symptoms for 30 Days, #30 TAB 0 Refills Metformin HCl (Metformin HCl) 500 Mg Tablet 1 TAB PO BID Methotrexate Sodium/Pf (Methotrexate 1 gm Vial) 1 Gram Vial Pantoprazole Sodium (Protonix) 20 Mg Tablet.dr 2 TAB PO DAILY for 30 Days, #30 TAB Semaglutide (Ozempic) 2 Mg/0.75 Ml (8 Mg/3 Ml) Pen.injctr 2 MG SUBCUT Q7D for 30 Days, #3 ML 0 Refills Discharge Summary: 54-year-old female patient with a past medical history of COPD requiring 2 L of oxygen throughout the day, hypothyroidism, diabetes mellitus, hypertension, RA and discoid lupus presents to the hospital complaints of worsening respiratory distress and raspy cough that had begun about three weeks ago. This is a 2nd hospitalization over the last one year with similar complaints. He was previously diagnosed with acute on chronic COPD exacerbation on her 1st hospitalization and was advised to follow up with a briefcase sewer, however, she has not been able to follow up. In the current hospitalization, she was diagnosed and managed for an acute exacerbation of COPD again. She required up to 4 L of oxygen throughout the day. Duo nebs, IV Solu-Medrol with Benadryl due to her allergy to steroids, albuterol p.r.n. and Mucinex scheduled were given. She is allergic to Zithromax due to which she was treated with Levaquin. On the 1st day, she also had coarse inspiratory and expiratory breath sounds at resembled a pleural friction rub. Initially, she reported to have lupus and also presented with a diffuse macular rash. Her sealing machine operator was contacted who confirmed that the patient had only discoid lupus for which she is being managed with Plaquenil and methotrexate due to which an acute lupus flare was ruled out. Reassuring labs were also obtained were ESR was normal and CRP was mildly elevated at 5. Patient had a prior history of recurrent right lower limb DVT, she was supposed to be taking 5 mg of Eliquis twice daily but only takes once a day. Wells score was calculated and was 4.5, due to the noncompliance as well as elevated Wells score, a CTA chest was obtained. CTA chest ruled out pulmonary embolism. Patient continues to smoke. She was extensively counseled regarding the need to quit smoking as well as obtaining a briefcase sewer to review on her resistant COPD. On the day of discharge, the patient was back down to her baseline of 2 L of oxygen and breath sounds are also improved. Due to maintaining stability, the patient was discharged back home. Advised at discharge: Kindly follow up with your PCP in 1 week. Repeat your cbc, cmp, esr and crp in 1-2 weeks. We are prescibing you on an antibiotic that you must take for the next 5 days. Continue using your nebulizations as instructed. You need to use atleast 1-2 lts of Oxygen through out the day. It is very important that you obtain a referral to the briefcase sewer to come up with a treatment plan for you lung disease. As discussed, you need to be appropriate inhalers for the level of distress and hospitalisations. IF you have recurrnece of symptoms, receurrent fevers, chills, or symptoms that fail to improve, kindly return back to the ER. Physical exam at discharge: General: Awake and Alert. Tender points+ Resp: Mildly tachypneic. Interval improvement in diffuse coarse breath sounds. Heart: Regular Rate and rhythm, normal S1 and S2 without murmur, rub or gallop. Abdomen: Obese, Soft and non tender no organomegaly Extremities: No cyanosis,clubbing or edema. Skin: Warm and Dry. Malar rash+ Labs at discharge: WBC 9.9, RBC 4.4, hemoglobin 13.8, platelet 348 Sodium 139, potassium 4.5, chloride 101, bicarb 29.2, BUN 16, creatinine 0.9, glucose 187 CRP 5.78, ESR 16 Medications at discharge: Levaquin 750 mg for five days, albuterol, Eliquis, atenolol, bupropion, cholecalciferol, cyclobenzaprine, Flovent, folic acid, Lasix, hydrocodone 10 q.6 p.r.n., Plaquenil, methotrexate, levothyroxine, Claritin, metformin, Atrovent nebule *Problems/Diagnosis: (1) Chronic obstructive pulmonary disease Status: Acute (2) Respiratory failure Status: Acute Total Time Spent on D/C: > 30 Minutes Counseling Services Smoking & Tobacco Cessation: 3-10 Minutes Date of Service: June 27, 2024 Billing Provider: LEXI KELLY MD, DEEPANJALI, RES June 27, 2024 17:57
[2024-06-27] MEDS ORDERED: guaiFENesin ER 600mg tablet PO SCH (20:00)
--- NOTE | 2024-06-27 20:16 | CARDIOLOGY REPORT ---
APPROVED REPORT EXAM: Comprehensive 2D, Doppler, and color-flow Echocardiogram. Patient Location: 302 Heart Rate: 78 bpm Rhythm: NSR Indications CONGESTIVE HEART FAILURE ELEVATED PRO BNP 200 COPD DIABETES MELLITUS HTN THEATER EDUCATION TEACHER: None. PRIOR ECHOCARDIOGRAM: None. 2D Dimensions RVDd 2.9 cm IVSd 1.2 (0.7-1.1cm) LVDd 5.3 cm PWd 1.2 (0.7-1.1cm) IVSs 1.3 (0.8-1.2cm) LVDs 3.9 (2.5-4.0cm) PWs 1.5 (0.8-1.2cm) LVOT Diameter 2.04 (1.8-2.4cm) LVEF(%) 55.0 (>50%) FS (%) 25.9 % SV 68.3 ml CO 5.0 L/min M-Mode Dimensions Left Atrium(MM) 4.12 (2.5-4.0cm) Aortic Root 3.34 (2.2-3.7cm) Aortic Cusp Exc 2.35 (1.5-2.0cm) Aortic Valve AoV Peak Richard. 129.9 cm/s AoV VTI 25.3 cm AO Peak GR. 6.8 mmHg AO Mean GR. 4 mmHg LVOT VTI 20.26 cm LVOT Peak Richard. 100.0 cm/s NBA(VTI)/BSA 2.62 cm2/m2 NBA (VTI) 2.62 cm2 Mitral Valve MV E Velocity 80.4 cm/s MV Peak Gr. 3 mmHg MV DECEL TIME 268 ms MV A Velocity 81.4 cm/s MV PHT 52 ms E/A Ratio 1.0 MVA (PHT) 4.23 cm2 MV VMax79.8 cm/s Tricuspid Valve TR P. Velocity 156 cm/s RAP ESTIMATE 5 mmHg TR Peak Gr. 10 mmHg RVSP 15 mmHg LEFT VENTRICLE Normal LV size and function. Mild concentric hypertrophy. Overall LVEF is about 60-65% RIGHT VENTRICLE RV ismildly dilated with normal function. RVSP 15 mmHg. ATRIA Left atrium is mildly dilated. Right atrium is mildly dilated. AORTIC VALVE Trileaflet AV appears mildly sclerotic without stenosis. Trace insufficiency. MITRAL VALVE Mild mitral annular calcification with normal valve. Mild mitral regurgitation TRICUSPID VALVE TV appears structurally normal with trace regurgitation. PULMONIC VALVE Pulmonic valve leaflets are thickened. GREAT VESSELS The aortic root is normal in size. IVC is not well visualized. PERICARDIUM Normal pericardium. No effusion. Other Information Study Quality: Fair Technically limited study due to body habitus and COPD. Conclusion Overall LVEF is about 60-65% Normal LV size and function. Mild concentric hypertrophy. RV ismildly dilated with normal function. RVSP 15 mmHg. Trileaflet AV appears mildly sclerotic without stenosis. Trace insufficiency. Mild mitral annular calcification with normal valve. Mild mitral regurgitation TV appears structurally normal with trace regurgitation. Normal pericardium. No effusion.
== END 2024-06-27 11:37 | disposition home or self-care (01) | DRG 189 ==
LOC: ER 15:53 → ED HOLD 21:18 → EDBEDREQ 21:56 → PCU 3S 22:41
PROVIDERS: ADMIT Internal Medicine Sleep Medicine; ATTEND Internal Medicine
PROC: B32T1ZZ Computerized Tomography (CT Scan) of Left Pulmonary Artery using Low Osmolar Contrast (ICD-10-PCS; principal; 2024-06-26)
PROC: B3201ZZ Computerized Tomography (CT Scan) of Thoracic Aorta using Low Osmolar Contrast (ICD-10-PCS; 2024-06-26)
PROC: B32S1ZZ Computerized Tomography (CT Scan) of Right Pulmonary Artery using Low Osmolar Contrast (ICD-10-PCS; 2024-06-26)
DX: J96.21 Acute and chronic respiratory failure with hypoxia (principal); J18.9 Pneumonia, unspecified organism; J44.1 Chronic obstructive pulmonary disease with (acute) exacerbation; J44.0 Chronic obstructive pulmonary disease with (acute) lower respiratory infection; Z68.43 Body mass index [BMI] 50.0-59.9, adult; E11.9 Type 2 diabetes mellitus without complications; E66.01 Morbid (severe) obesity due to excess calories; Z20.822 Contact with and (suspected) exposure to COVID-19; I10 Essential (primary) hypertension; M06.9 Rheumatoid arthritis, unspecified; E03.9 Hypothyroidism, unspecified; M79.7 Fibromyalgia; Z86.718 Personal history of other venous thrombosis and embolism; Z91.148 Patient's other noncompliance with medication regimen for other reason; Z88.8 Allergy status to other drugs, medicaments and biological substances; Z88.6 Allergy status to analgesic agent; Z88.1 Allergy status to other antibiotic agents; Z88.5 Allergy status to narcotic agent; Z88.0 Allergy status to penicillin; Z88.2 Allergy status to sulfonamides; Z98.891 History of uterine scar from previous surgery
CPT/HCPCS: 36415; 71045; 71275; 80053; 80061; 81003; 82948; 83036; 83605; 83735; 83880; 84145; 84443; 84484; 85025; 85610; 85651; 86140; 87040; 87081; 87811; 93005; 93306; 94640; 94760; 96365; 96375; 97161; 97530; 99285; A4615; G0378; J0696; J1200; J1815; J1956; J2919; Q9967

== ENCOUNTER 2025-01-29 14:09 | Emergency (ER) | payer BC ==
[~2025-01-29] VITALS: Ht 157.5 cm; Wt 135.3 kg
[~2025-01-29 14:09] MED LIST changes: -CEPH-585 PO; -ERGO125013 PO; +FOLI0.4T6 PO; +HYDR200T73 PO; -HYDR200T80 PO; -LEVO-65 PO; -LIRA0.6P2 SUBCUT; -LISI10TA27 PO; +METF-1203 PO; +METH1VIA2; -NEO/5DRO7 RIGHT EAR; -NO HOME MEDS; +SEMA2PEN SUBCUT; -TAM75C PO
--- NOTE | 2025-01-29 14:14 | ELECTROCARDIOGRAPH REPORT ---
[facility] Test Date: 2025-01-29 Test Time: 14:12:21 Pat Name: ALENA BENTLEY Department: [facility] Patient ID: [facility]-[id number] Room: Gender: F Candy Butcher: : 1970 Requested By: MARILY OWENS Order Number: [id number] Reading MD: Dr. Tank Moser Measurements Intervals Jarratt Rate: 81 P: 63 MD: 162 QRS: 40 QRSD: 94 T: 60 QT: 388 QTc: 451 Interpretive Statements Sinus rhythm Electronically Signed On 01-30-2025 21:13:[address] Tank Moser Please click the below link to view image of tracing.
--- NOTE | 2025-01-29 14:34 | RADIOLOGY REPORT ---
CHEST RADIOGRAPH INDICATION: CP TECHNIQUE: Single frontal view of the chest was obtained COMPARISON: DI CHEST,SINGLE VIEW on DOS: 06/25/24, DI CHEST,SINGLE VIEW on DOS: 02/14/23, CHEST,SINGLE VIEW on DOS: 03/21/21, CHEST,SINGLE VIEW on DOS: 11/21/19 FINDINGS: Lines and Tubes: None Lungs: Clear Pleura: No effusion. No pneumothorax. Cardiomediastinal contours: Mild vascular calcification of the aortic knob. Sutures clips from previous probable thyroid surgery. Bones: Unremarkable IMPRESSION: 1. No radiographic evidence of acute cardiopulmonary abnormality.
[2025-01-29 14:41] VITALS: TEMP 98.9
[2025-01-29 14:43] LABS: MEAN PLATELET VOLUME 8.2 FL (7.4-10.4); RED CELL DISTRIBUTION WIDTH 13.8 % (11.5-14.5)
--- NOTE | 2025-01-29 14:47 | Physician Documentation ---
History of Present Illness General Chief Complaint: Shortness of Breath Stated Complaint: SOB/CHEST PAIN Time Seen by MD: 14:39 Primary Medical Doctor: [facility] History of Present Illness Initial Comments 55 year old female with lupus presents to the emergency department brought by her daughter for complaints of shortness of breath that has been present for a few weeks. She states that she had been feeling short of breath with a persistent cough for weeks now but it has been worsening the past few days. She also complains of fevers reaching 101 for the past 4 days. Patient states her cough has been productive and she has been producing green phlegm. She states she has been treating herself with her inhalers and nebulizer but they are to no avail. Patient states she is on 3L of oxygen at baseline. Additionally she states she has not been able to lie flat or sleep because of her shortness of breath. Patient states she is using blood thinners. Patient sees Yesi Douglass as her financial writer. Medication Reconciliation Allergies: Coded Allergies: nitrofurantoin (Unverified Allergy, Intermediate, Hives, 01/29/25) NSAIDS (Non-Steroidal Anti-Inflamma (Verified Allergy, Unknown, 01/29/25) Penicillins (Verified Allergy, Unknown, 01/29/25) RASH, TONGUE SWELLING Sulfa (Sulfonamide Antibiotics) (Verified Allergy, Unknown, 01/29/25) Tetracyclines (Verified Allergy, Unknown, 01/29/25) aspirin (Verified Allergy, Unknown, 01/29/25) codeine (Verified Allergy, Unknown, 06/25/24) erythromycin base (Verified Allergy, Unknown, 06/25/24) lemon (Unverified Allergy, Unknown, 06/25/24) meperidine (Verified Allergy, Unknown, 06/25/24) morphine (Verified Allergy, Unknown, 06/25/24) prednisone (Verified Allergy, Unknown, 06/25/24) Uncoded Allergies: CORTICOSTEROIDS (Allergy, Unknown, RASH, 11/21/19) IVP DYE (Allergy, Unknown, 11/21/19) METRONIDIZOL (Allergy, Unknown, 11/21/19) Scheduled Albuterol Sulfate (Ventolin Hfa), 2 PUFFS INH Q4HPRN, (Reported) Apixaban (Eliquis), 1 TAB PO BID Atenolol (Atenolol), 1 TAB PO DAILY, (Reported) Bupropion HCl (Wellbutrin Xl), 1 TAB PO DAILY, (Reported) Cefpodoxime Proxetil (Vantin), 1 TAB PO Q12H Cholecalciferol (Vitamin D3) (Vitamin D3), 4,000 UNIT PO DAILY, (Reported) Cyclobenzaprine HCl (Cyclobenzaprine HCl), 1 TAB PO BID, (Reported) Fluticasone Propionate (Flovent 100 Mcg Diskus), 220 MCG INH BID, (Reported) Folic Acid* (Folic Acid*), 1 TAB PO DAILY, (Reported) Furosemide 40 MG (Lasix), 1 TAB PO DAILY, (Reported) Hydrocodone Bit/Acetaminophen (Hilo 10-325 Tablet), 1-2 TAB PO Q6H PRN PAIN, (Reported) Hydroxychloroquine Sulfate* (Plaquenil*), 3 TAB PO DAILY, (Reported) Ipratropium [place] Neb* (Atrovent Neb*), 0.5 MG IH Q8H Ipratropium/Albuterol Sulfate (IPRAT-ALBUT 0.5-3(2.5) MG/3 ML nebule), 3 ML IH QID Levothyroxine* (Synthroid*), 200 MCG PO DAILY, (Reported) Loratadine (Claritin), 1 TAB PO DAILY, (Reported) Metformin HCl (Metformin HCl), 1 TAB PO BID, (Reported) Pantoprazole Sodium (Protonix), 2 TAB PO DAILY, (Reported) Semaglutide (Ozempic), 2 MG SUBCUT Q7D, (Reported) Miscellaneous Medications Methotrexate Sodium/Pf (Methotrexate 1 gm Vial), (Reported) Past Medical History Past Medical History: *ENT*, Hypertension, Asthma, COPD, Pneumonia, Diabetes, Thyroid (unspecified), Chronic Pain, Deep Vein Thrombosis Past Surgical History: , other Alcohol Use: None Drug Use: none Lives with: Family Lives In: Home Review of Systems All Other Systems at this time: Reviewed and Negative ROS Patient was asked, but denied any other symptoms. All other systems are negative other than those mentioned above. Physical Exam Physical Exam Vital Signs: RN Vital Signs have been reviewed: Yes, Temperature: 98.9, Source: Oral, Heart Rate: 73, Respiratory Rate: 25, BP: 146/93, Pulse Oximetry: 92, Weight: 135.300 Oxygen Flow Rate: 0 Pulse Oximetry Reflects: adequate oxygenation Physical Exam VITALS: Reviewed and as above. GENERAL: Alert, no apparent distress. HEENT: Normocephalic, atraumatic. PERRL, EOMI. Dry mucosa, no erythema. RESPIRATORY: Diffuse expiratory wheezes with rhonchi bilaterally. CHEST: No accessory muscle use, no retractions. CV: Regular rate and rhythm. No edema, no murmur, No: JVD GI: Soft, non-tender, bowel sounds present. No rebound, guarding, or rigidity . BACK: No CVA tenderness, no swelling. MUSCULOSKELETAL: No deformities, no edema SKIN: Warm and dry, no rash. NEURO: Oriented x4. No motor or sensory deficit. PSYCH: Normal mood and affect, no agitation. Progress Results/Orders Results/Orders Orders - MARILY COREA MD Chest,Single View (01/29/25 14:19) Monitor (01/29/25 14:10) Saline Lock (01/29/25 14:10) Oxygen (01/29/25 14:10) Hs Troponin I W Calculations (01/29/25 17:10) Culture Blood (01/29/25 ) Covid19 Binax Poc Result Entry (01/29/25 15:28) Svn Treatment (01/29/25 ) Completed Orders - MARILY COREA MD Chest,Single View (01/29/25 14:19) Cbc/Diff (01/29/25 14:10) BMP (01/29/25 14:10) PBNP (01/29/25 14:10) Electrocardiogram (01/29/25 14:10) Hs Troponin I W Calculations (01/29/25 14:10) Hs Troponin I W Calculations (01/29/25 16:10) Procalcitonin (01/29/25 14:48) Lacticsepsis (01/29/25 15:28) Influenza Type A&B Rapid Test (01/29/25 15:28) Ceftriaxone 2gm/D5w 50ml Bag (Rocephin 2 (01/29/25 15:35) Diphenhydramine Inj (Benadryl Inj.) (01/29/25 15:35) Methylprednisolone Sod Succ (Solumedrol (01/29/25 15:35) Ipratropium/Albuterol Nebule (Ipratrop/A (01/29/25 15:35) Normal Saline 1000ml (0.9% Sodium Chlori (01/29/25 15:40) Medications Received in ER Medications (Trade) Dose Ordered Sig/Sergey Route PRN Reason Start Time Stop Time Status Last Admin Dose Admin Ceftriaxone Sodium/Dextrose 50 ml @ 100 mls/hr ONCE ONCE IV 01/29/25 15:35 01/29/25 16:04 DC 01/29/25 16:33 100 MLS/HR (Benadryl inj.) 50 mg ONCE ONCE IV 01/29/25 15:35 01/29/25 15:38 DC 01/29/25 16:33 50 MG (SoluMEDROL 125mg inj) 125 mg ONCE ONCE IV 01/29/25 15:35 01/29/25 15:38 DC 01/29/25 16:33 125 MG (ipratrop/ albuterol 0.5-3(2.5) MG/3ml nebule) 3 ml ONCE ONCE NEB 01/29/25 15:35 01/29/25 15:38 DC 01/29/25 15:52 3 ML (0.9% sodium chloride (NS) 1000ml IV soln) 1,000 ml ONCE ONCE IVB 01/29/25 15:40 01/29/25 15:41 DC 01/29/25 16:33 1,000 ML Vital Signs 01/29/25 01/29/25 01/29/25 01/29/25 14:19 14:41 15:00 15:19 Temp 97.9 98.9 Pulse 77 73 72 Resp 20 25 20 B/P (MAP) 160/91 146/93 (110) 137/77 (97) Pulse Ox 92 92 95 95 O2 Delivery Nasal Cannula* O2 Flow Rate 0 1 0 FiO2 24 01/29/25 01/29/25 01/29/25 15:54 15:56 17:02 Pulse 72 70 70 Resp 21 29 15 B/P (MAP) 138/86 (103) Pulse Ox 98 96 O2 Delivery Nasal Cannula* Nasal Cannula* O2 Flow Rate 2 2 2.0 FiO2 28 28 Laboratory Tests Test 01/29/25 14:32 01/29/25 14:59 01/29/25 15:40 01/29/25 15:41 White Blood Count 12.7 H Red Blood Count 4.71 Hemoglobin 14.3 Hematocrit 43.4 Mean Corpuscular Volume 92.2 Mean Corpuscular Hemoglobin 30.5 Mean Corpuscular Hemoglobin Concent 33.1 Red Cell Distribution Width 13.8 Platelet Count 310 Mean Platelet Volume 8.2 Neutrophils (%) (Auto) 79.4 H Lymphocytes (%) (Auto) 12.8 L Monocytes (%) (Auto) 5.9 Eosinophils (%) (Auto) 1.2 Basophils (%) (Auto) 0.7 Neutrophils # (Auto) 10.1 H Lymphocytes # (Auto) 1.6 Monocytes # (Auto) 0.7 Eosinophils # (Auto) 0.2 Basophils # (Auto) 0.1 CBC Comment Sodium Level 138 Potassium Level 4.7 Chloride Level 100 Carbon Dioxide Level 31.7 Anion Gap 6 L Blood Urea Nitrogen 16 Creatinine 0.82 Estimated GFR/1.73 m2 72 BUN/Creatinine Ratio 19.5 Glucose Level 181 H Lactic Acid Level 1.3 Calcium Level 9.0 Troponin I High Sensitivity 8 Pro-B-Type Natriuretic Peptide 42 Albumin 3.6 Chemistry Comments Procalcitonin < 0.05 SARS-CoV-2 Antigen (Rapid) Negative Influenza Type A Antigen Negative Influenza Type B Antigen Negative Test 01/29/25 15:55 Troponin I High Sensitivity 7 Troponin I High Sens Percent Delta 12 Troponin I Hi Sens Absolute Change -1 EKG/XRAY/CT/US/VASC/MRI EKG : Additional Comment 1412: [facility] interpreted the EKG to show a normal sinus rhythm at a rate of 81 beats per minute, normal axis, nonspecific ST wave changes. Chest X-Ray : Additional Comments CHEST RADIOGRAPH INDICATION: CP TECHNIQUE: Single frontal view of the chest was obtained COMPARISON: DI CHEST,SINGLE VIEW on DOS: 06/25/24, DI CHEST,SINGLE VIEW on DOS: 02/14/23, CHEST,SINGLE VIEW on DOS: 03/21/21, CHEST,SINGLE VIEW on DOS: 11/21/19 FINDINGS: Lines and Tubes: None Lungs: Clear Pleura: No effusion. No pneumothorax. Cardiomediastinal contours: Mild vascular calcification of the aortic knob. Sutures clips from previous probable thyroid surgery. Bones: Unremarkable IMPRESSION: 1. No radiographic evidence of acute cardiopulmonary abnormality. Electronically Signed by:RICKY DAHL MD Date & Time: 01/29/25 1432 Reviewed by YENIFER Corea Departure Time of Disposition: 17:18 Disposition: 01 HOME / SELF CARE / HOMELESS Impression: Primary Impression: Bronchitis Condition: Stable Discharge Instructions: Bronchitis Referrals: NO PRIMARY CARE PROVIDER (PCP) Prescriptions Cefpodoxime Proxetil (Vantin) 200 Mg Tablet 1 TAB PO Q12H for 7 Days, #14 TAB Prov: MARILY COREA MD 01/29/25 Education Educated: Patient, Family Educated regarding: diagnosis, treatment, need for follow up Signature Scribe Signature: no scribe MARILY COREA MD Jan 29, 2025 14:47
[2025-01-29 14:59] LABS: CREATININE 0.82 MG/DL (0.40-0.90); PRO BRAIN NATRIURETIC PEPTIDE 42 PG/ML (0-125); TOTAL CARBON DIOXIDE 31.7 MMOL/L (24-32); eCRCL 60 ML/MIN; eGFR 72 ML/MIN
[2025-01-29] MEDS: ipratropium/albuterol 3ml nebule NEB ONE (15:52)
[2025-01-29 15:54] VITALS: PULSE 72; RESP 21
[2025-01-29 15:56] VITALS: PULSE 70; RESP 29; O2SAT 98
[2025-01-29 16:27] LABS: INFLUENZA TYPE A ANTIGEN RAPID NEGATIVE (Negative); INFLUENZA TYPE B ANTIGEN RAPID NEGATIVE (Negative)
[2025-01-29] MEDS: CefTRIAXone 2gm/D5W 50ml BAG 50 ML IV ONE (16:33)
[2025-01-29] MEDS: normal saline 1000ML IV soln IVB ONE (16:33)
[2025-01-29] MEDS ORDERED: CEFP200T13 PO (17:18)
[2025-01-29 17:36] VITALS: BP 123/72; PULSE 71; RESP 20; O2SAT 96
== END 2025-01-29 17:38 | disposition home or self-care (01) ==
LOC: ER 14:09
DX: J40 Bronchitis, not specified as acute or chronic (principal); J44.9 Chronic obstructive pulmonary disease, unspecified; I10 Essential (primary) hypertension; G89.29 Other chronic pain; E11.9 Type 2 diabetes mellitus without complications; Z88.0 Allergy status to penicillin; Z88.2 Allergy status to sulfonamides; Z88.1 Allergy status to other antibiotic agents; Z88.5 Allergy status to narcotic agent; Z87.01 Personal history of pneumonia (recurrent); Z88.6 Allergy status to analgesic agent; Z86.718 Personal history of other venous thrombosis and embolism; Z88.8 Allergy status to other drugs, medicaments and biological substances; Z79.899 Other long term (current) drug therapy; Z20.822 Contact with and (suspected) exposure to COVID-19
CPT/HCPCS: 36415; 71045; 80048; 83605; 83880; 84145; 84484; 85025; 87040; 87804; 87811; 93005; 94640; 96365; 96375; 99285; J0696; J1200; J2919; J7030; 94760; A4615

== ENCOUNTER 2025-01-30 23:03 | Emergency (ER) | payer BC ==
[~2025-01-30] VITALS: Ht 157.5 cm; Wt 131.9 kg
[~2025-01-30 23:03] MED LIST changes: +CEFP200T13 PO
[2025-01-30 23:42] VITALS: PULSE 84
[2025-01-31 02:17] VITALS: BP 147/77; RESP 16; TEMP 98.7; O2SAT 97
--- NOTE | 2025-01-31 10:09 | ELECTROCARDIOGRAPH REPORT ---
[facility] Test Date: 2025-01-30 Test Time: 23:08:37 Pat Name: ALENA BENTLEY Department: EMERGENCY ROOM Room: Gender: F [employer]visor [employer]: : 1970 Requested By: DEPARTMENT EMERGENCY Order Number: [id number] Reading MD: Dr. Tank Moser Measurements Intervals [place] Rate: 87 P: 49 CA: 151 QRS: 11 QRSD: 96 T: 61 QT: 372 QTc: 448 Interpretive Statements Sinus rhythm Probable left ventricular hypertrophy Baseline wander in lead(s) V1 Electronically Signed On 01-31-2025 21:37:[address] Tank Moser Please click the below link to view image of tracing.
== END 2025-01-31 02:20 | disposition left against medical advice (07) ==
LOC: ER 23:03
DX: R06.02 Shortness of breath (principal)
CPT/HCPCS: 93005; 99281; 99282